=== PATIENT | female | born 1985 | race Caucasian/White ===

== ENCOUNTER 2018-03-26 12:26 | Day surgery (SDC) | payer OTHER, MEDICAID, SELFPAY ==
--- NOTE | 2018-03-26 09:10 | POC_PTH ---
PATIENT: EZEKIEL PILLAI [place] [facility] [id number] AGE/SX: 32/F ROOM: RE03/26/[address]: Dr. Cate Guillen MD : [id number] BED: DIS: 03/26/2018 SPEC #: [id number] RECD: 03/27/18 09:15 STATUS: TREASURE BRAYAN #: [id number] BETH: 03/26/18 09:[address]: Cate Guillen DEPT: SURGICAL PATHOLOGY RECD BY: Arturo Garcia ENTERED: 03/27/18 10:29 SP TYPE: PROD CONC OTHR DR: Monique Dickson, SHELL SIEVE OPERATOR-Adonis Tissues: Product of conception, NOS Procedures: Surgery Specimen Level IV HEADER OPERATION: Dilation and curettage, suction PRE-OP DIAGNOSIS: Incomplete TISSUE SUBMITTED: Products of conception MICROSCOPIC DIAGNOSIS Endometrium, curettage: Rare chorionic villi, decidualized stroma and hypersecretory endometrium consistent with products of conception. AM:[email or web address] 03/28/18 MICROSCOPIC DESCRIPTION Slides are reviewed. GROSS DESCRIPTION Received in fixative is one container labeled with the patient's name and designated products of conception. The specimen consists of multiple irregular fragments of red-calderón soft tissue that in aggregate measure 7.5 x 5.5 x 1 cm. parts are not grossly recognized. Refueling Ramp Supervisor portions are submitted in two cassettes. / AM:shameka 03/27/18 TC:5 CPT: 61231
[2018-03-26 12:58] VITALS: BP 132/74; PULSE 71; RESP 16; TEMP 36.3; O2SAT 99; BMI 39.9
[2018-03-26] MEDS: Doxycycline 100 MG CAPSULE 200 MG PO (13:22)
[2018-03-26 13:36] LABS: Hematocrit 39.7 % (37-47); Hemoglobin 13.5 g/dl (12.0-15.0); Mean Corpuscular Hgb 31.5 pg (27.0-32.0); Mean Corpuscular Volume 92.8 fL (81-99); Mean Platelet Vol. 11.1 fl (6.2-12.0); Platelet Count 266 K/mm3 (150-450); RBC Distribution Width CV 12.5 % (11.6-14.6); RBC Distribution Width SD 41.9 fl (35.1-43.9); Red Blood Count 4.28 M/mm3 (4.2-5.4); Scan Indicated on CBC? Y/N NO; White Blood Count 8.2 K/mm3 (4.4-11.0)
--- NOTE | 2018-03-26 15:10 | DCINST_ITS ---
Discharge Diet: No Restrictions Discharge Activity: May Drive - after 24 hours, May Shower May resume sexual activity in: 4-6 weeks Weight Bearing Status: Weight bearing as tolerated Call your doctor if you observe: Fever of 101 or Higher, Coldness, Increased Pa in, Numbness or Tingling, Change in Color, Inability to urinate, Inability to have a bowel movement, Using more than one pad per hour, Shortness of breath, Dizziness, Fainting spells, Chest pain, Increased palpitations (irregular heartbeat), Uncontrolled pain Allergies/Adverse Reactions: Allergies No Known Allergies Allergy (Verified 10/12/14 01:50) Medications to take at Discharge Vits [Prenatabs FA ] 1 tablet PO DAILY 10/12/14 Primary Care Physician: Monique Dickson NP-C [Primary Care Provider] - Test Results: Test results from this visit will be discussed in further detail at your follow- up appointment, if applicable.
--- NOTE | 2018-03-26 15:56 | PCM.OPRPT ---
Report of Operation Date of Procedure: 03/26/18 Pre-Operative Diagnosis: Incomplete Post-Operative Diagnosis: Same Surgery/Procedure Performed:: Suction dilation & curettage Description of Surgical Findings:: Uterus c/w 9 week . POC's present. Type of Anesthesia:: MAC Specimen's removed: POC's Estimated Blood Loss (mL): 100ml Fluids Replaced: 600ml Description of Procedure: MAC anesthesia placed in OR. Patient placed in dorsal lithotomy position where she was prepped & draped. Tenaculum used to grasp anterior cervix. #9 suction curette introduced and there was good return of POC's. Sharp curettage gently performed with #3 curette. TAUS performed & showed small amount of remaining POC's. Repeat suction curettage performed. 1 additional pass with sharp curette performed & confirmed gritty texture. TAUS confirmed no retained POC's. All instruments removed from vaginal cavity. Vaginal sweep performed. - Complications none
[2018-03-26 16:00] VITALS: BP 121/72; BP 132/74; PULSE 87; RESP 16; TEMP 36.6; O2SAT 100
[2018-03-26 16:05] VITALS: BP 111/67; BP 132/74; PULSE 86; RESP 16; O2SAT 100
[2018-03-26 16:10] VITALS: BP 118/68; BP 132/74; PULSE 79; RESP 16; O2SAT 100
[2018-03-26 16:15] VITALS: BP 125/67; BP 132/74; PULSE 79; RESP 16; TEMP 36.5; O2SAT 100
[2018-03-26 16:53] VITALS: BP 132/74
--- OUTSIDE RECORDS SUMMARY | 2018-06-27 22:27 | XMS RPT_ITS ---
:1985 Author Organization OHIP Care Team Providers Name Role Phone ELIZABETH DICKSON (SKI LIFT ATTENDANT) Attending Unavailable CORNIELELIZABETH LEMOS (SKI LIFT ATTENDANT) Referring Unavailable CORNELIZABETH MARTIN (SKI LIFT ATTENDANT) Attending Unavailable CORNIELLOELIZABETH (SKI LIFT ATTENDANT) Attending Unavailable CORNIELLOELIZABETH (SKI LIFT ATTENDANT) Attending Unavailable CORNIELLOELIZABETH (SKI LIFT ATTENDANT) Attending Unavailable CORNIELLO, ELIZABETH L (SKI LIFT ATTENDANT) Referring Unavailable LIV CHAVEZ (CN) Attending Unavailable CORNIELLO, ELIZABETH Haja (SKI LIFT ATTENDANT) Referring Unavailable PRINCESS LAURENT Attending Unavailable INDIA LOPEZ Attending Unavailable INDIA LOPEZ Attending Unavailable INDIA LOPEZ Referring Unavailable India Lopez Attending Unavailable India Lopez Referring Unavailable Elizabeth Dickson MARINE DRAFTER-C Primary Care Unavailable IMCA Referring Unavailable IMCA Primary Care Unavailable PROBLEMS PROBLEMS DATE TYPE CONDITION / CODE ATTENDING STATUS SOURCE 02/27/2018 Active Vitamin D NA Active [facility] deficiency, [facility] unspecified / Repository E55.9(ICD-10) 02/27/2018 Active Encounter for NA Active [facility] supervision of [facility] other normal Repository , first trimester / Z34.81(ICD-10) 12/25/2017 Admitting Unknown / NA Active [facility] diagnosis UNK(Unknown) Health System Repository 11/12/2017 Active Unknown / [facility], Active [facility] UNK(Unknown) ELIZABETH Smyth (SKI LIFT ATTENDANT) Main [place] Repository 08/01/2017 Active Morbid (severe) NA Active [facility] obesity due to [facility] excess calories / Repository E66.01(ICD-10) PROCEDURES PROCEDURES No Procedure Records FoundRESULTS RESULTS PROGRESS Observed: 04/08/2018 Status: COMPLETED Source: [place] 1:01 PM [facility] REPOSITORY HNO ID: [id number] Author: India Lopez Service: (none) Author Type: Physician Type: Progress Notes Filed: 04/08/2018 3:01 PM Note Text: DATE OF SERVICE: 04/08/2018 PROBLEM: Ezekiel Pillai presents for postop visit. SURGERY AND DATE: Suction Dilation and Curettage 03/26/18 PATHOLOGY: POC's SUBJECTIVE/INTERVAL HISTORY: Ezekiel Pillai reports that she feels well. The miscarriage has caused the emotions from the son she lost to resurface. OBJECTIVE: PE - deferred ASSESSMENT: 32yo female s/p DANDC for missed AB PLAN: Routine care Discussed future Will have nurse call AND check on patient in 1-2 weeks India Lopez MD CNOV Observed: 04/08/2018 Status: COMPLETED Source: [place] 1:00 PM [facility] REPOSITORY Office Visit (WOOB) DAYANARAEZEKIEL SALAZAR ([id number]) 1985 F Date Time Provider Department 04/08/18 1:00 PM INDIA LOPEZ WOCHRIST During your visit today, we recorded the following information about you: Blood pressure Weight 112/74 114.9 kg India Lopez MD 04/08/2018 3:01 PM Signed DATE OF SERVICE: 04/08/2018 PROBLEM: Ezekiel Pillai presents for postop visit. SURGERY AND DATE: Suction Dilation and Curettage 03/26/18 PATHOLOGY: POC's SUBJECTIVE/INTERVAL HISTORY: Ezekiel Pillai reports that she feels well. The miscarriage has caused the emotions from the son she lost to resurface. OBJECTIVE: PE - deferred ASSESSMENT: 32yo female s/p DANDC for missed AB PLAN: Routine care Discussed future Will have nurse call AND check on patient in 1-2 weeks India Lopez MD Referring Provider: INDIA LOPEZ [[id number]] Allergies As of Date: 04/08/2018 (No Known Allergies) Date Reviewed: 04/08/2018 Reviewed by: India Lopez - Fully Assessed Reason for Visit: Post Op [174] Primary Visit Diagnosis:Post-operative state [Z98.890] Prescriptions as of 04/08/2018 Sig: TUMS 500 ORAL Take by mouth. CHOLECALCIFEROL (VITAMIN D3) * Take 1 capsule by mouth once * PEPCID ORAL Take by mouth. IBUPROFEN 600 MG TABLET Take 1 tablet by mouth every * Patient not taking: Reported on 02/21/2018 VITAMIN,CALCIUM,MINE* Take 1 tablet by mouth. Problem List As Of Date 04/08/2018 Noted Resolved Pilonidal cyst without mention of abscess [L05.*INVALID FOR*01/01/2012 Moderate dysplasia of cervix [N87.1] INVALID FOR*11/26/2014 Condyloma acuminatum [A63.0] INVALID FOR*01/01/2012 Supervision of normal first [Z34.00] INVALID FOR*01/01/2012 Candidiasis of vulva and vagina [B37.3] INVALID FOR*01/01/2012 with uncertain dates [Z34.90] INVALID FOR*02/16/2012 More... Obesity in [O99.210] INVALID FOR*01/02/2017 More... Tobacco use in [O99.330] INVALID FOR*01/06/2013 More... Supervision of other normal [Z34.80] INVALID FOR*01/06/2013 Uterine size date discrepancy [O26.849] INVALID FOR*01/06/2013 GBS (group B streptococcus) UTI complicating pr*INVALID FOR*11/26/2014 More... Encounter for supervision of normal first pregn*INVALID FOR*05/10/2016 Encounter for supervision of normal i*INVALID FOR*01/02/2017 Current with history of pre-term labo*INVALID FOR*01/02/2017 More... polycystic kidney disease affecting antep*INVALID FOR*01/02/2017 More... Positive GBS test [B95.1] INVALID FOR* [Z34.90] INVALID FOR*01/02/2017 with history of [O09.2*INVALID FOR* More... Obesity complicating , first trimester*INVALID FOR* More... Medications Discontinued During This Encounter miSOPROStol (CYTOTEC) 200 mcg tablet 4 ta* 0 03/25/2018 04/08/2018 Class: Print RX Route: VAGINAL Sig: Use 4 tablets vaginally as directed. place 4 tabs vaginally Patient not taking: Reported on 04/08/2018 Disc: Discontinued by Patient Follow-up and Disposition History Recorded Encounter Status:Closed by INDIA LOPEZ MD on 04/08/18 OPERATIVE REPORT Observed: 03/26/2018 Status: F Source: [place] 4:03 PM [facility] Medical [facility] Department [address] [place] [address] Operative Report 03/26/18 1556 MR#: [id number] Acct: [id number] Name: EZEKIEL PILLAI Rep #: [id number] : 1985 32 From: India Lopez PCP: Elizabeth Dickson NP Status: [facility] Y Location: [place] [address] Report of Operation Date of Procedure: 03/26/18 Pre-Operative Diagnosis: Incomplete Post-Operative Diagnosis: Same Surgery/Procedure Performed:: Suction dilation AND curettage Description of Surgical Findings:: Uterus c/w 9 week . POC's present. Type of Anesthesia:: MAC Specimen's removed: POC's Estimated Blood Loss (mL): 100ml Fluids Replaced: 600ml Description of Procedure: MAC anesthesia placed in OR. Patient placed in dorsal lithotomy position where she was prepped AND draped. Tenaculum used to grasp anterior cervix. #9 suction curette introduced and there was good return of POC's. Sharp curettage gently performed with #3 curette. TAUS performed AND showed small amount of remaining POC's. Repeat suction curettage performed. 1 additional pass with sharp curette performed AND confirmed gritty texture. TAUS confirmed no retained POC's. All instruments removed from vaginal cavity. Vaginal sweep performed. - Complications none 03/26/18 1603 <Electronically signed by India Lopez > Date India Lopez CC: STEVENSON Dickson; India Lopez Signed DISCHARGE INSTRUCTION Observed: 03/26/2018 Status: F Source: [place] 3:10 PM [facility] RE[facility]ORY [facility] Medical Records Department [address] [place] [address] Instructions for Home/Discharge Instructions 03/26/18 1509 MR#: [id number] Acct: [id number] Name: EZEKIEL PILLAI Rep #: [id number] : 1985 32 From: India Lopez PCP: Elizabeth Dickson NP Status: REG SDC Discharge Diet: No Restrictions Discharge Activity: May Drive - after 24 hours, May Shower May resume sexual activity in: 4-6 weeks Weight Bearing Status: Weight bearing as tolerated Call your doctor if you observe: Fever of 101 or Higher, Coldness, Increased Pain, Numbness or Tingling, Change in Color, Inability to urinate, Inability to have a bowel movement, Using more than one pad per hour, Shortness of breath, Dizziness, Fainting spells, Chest pain, Increased palpitations (irregular heartbeat), Uncontrolled pain Allergies/Adverse Reactions: Allergies No Known Allergies Allergy (Verified 10/12/14 01:50) Medications to take at Discharge Vits [Prenatabs FA ] 1 tablet PO DAILY 10/12/14 Primary Care Physician: Elizabeth Dickson NP-Adonis [Primary Care Provider] - Test Results: Test results from this visit will be discussed in further detail at your follow-up appointment, if applicable. 03/26/18 1510 <Electronically signed by India Lopez > Date India Lopez CC: STEVENSON Dickson CBC-COMPLETE BLOOD CNT Collected: 03/26/2018 Status: F Source: [place] NO DIFF 1:10 PM [facility] REPOSITORY TYPE CODE TESTS RESULT OUT OF RANGE REFERENCE UNITS LAB L100.1000 4.4-11.0 K/mm3 Normal WBC 8.2 LAB L100.1200 4.2-5.4 M/mm3 Normal RBC 4.28 LAB L100.1300 12.0-15.0 g/dl Normal HGB 13.5 LAB L100.1400 37-47 % Normal HCT 39.7 LAB L100.1500 81-99 fL Normal MCV 92.8 LAB L100.1600 27.0-32.0 pg Normal MCH 31.5 LAB L100.1700 32-36 g/gl Normal MCHC 34.0 LAB L100.1810 11.6-14.6 % Normal RDW CV 12.5 LAB L100.1820 35.1-43.9 fl Normal RDW SD 41.9 LAB L100.1900 150-450 K/mm3 Normal PLT 266 LAB L100.2000 6.2-12.0 fl Normal MPV 11.1 Performed By: #### L100.0500 #### [facility] [address] [facility]. [place], [place], [id number] TYPE AND SCREEN Collected: 03/26/2018 Status: F Source: [place] 1:10 PM [facility] REPOSITORY Order Comment: Reason for Type AND Screen/Red Cells: SURGERY Surgery Date: 03/26/18 TYPE CODE TESTS RESULT OUT OF RANGE REFERENCE UNITS LAB B10.0800 A Normal BLOOD TYPE GEL POSITIVE LAB B100.4000 Normal Antibody NEGATIVE Screen Performed By: #### B101.7450 #### [facility] [address] [facility]. [place], [place], [address] PROGRESS Observed: 03/26/2018 Status: COMPLETED Source: [place] 12:[address] [facility] [place] REPOSITORY HNO ID: [id number] Author: India Lopez Service: (none) Author Type: Physician Type: Progress Notes Filed: 03/26/2018 1:00 PM Note Text: Ezekiel Pillai is a 32 year old female who presents for missed AB. HPI: Patient presents with vaginal bleeding. She had very heavy bleeding and passed the baby. Patient almost passed out. Currently the bleeding is less and she feels a little better. PAST MEDICAL HISTORY Diagnosis Date - Abnormal glandular Papanicolaou smear of cervix 2-2004 Abn. Pap smear (cervix) - Abnormal Pap smear of cervix 01/18 ascus neg hpv - Anemia - polycystic kidney disease affecting antepartum care of mother - Pilonidal cyst without mention of abscess PAST SURGICAL HISTORY Procedure Laterality Date - COLPOSCOPY (VAGINOSCOPY) 11/25/2007 Colposcopy - COLPOSCOPY (VAGINOSCOPY) 06/08/2008 Colposcopy - REMOVAL OF TONSILS,<12 Y/O 2002 Tonsillectomy - REMV PILONIDAL LESION EXTENS - REMV PILONIDAL LESION EXTENS 03/11/2008 FAMILY HISTORY Problem Relation Age of Onset - Alcohol/Drug Father - Alcohol/Drug Maternal Grandmother - Thyroid Maternal Grandmother - Cancer Maternal Grandmother Lung cancer - Heart Maternal Grandfather - Alcohol/Drug Paternal Grandfather - other (sight deficiency- not legally blind +9.25) Daughter - Kidney Disease Son dysplastic kidney Social History Marital status: Spouse name: CARLITOS Years of education: 13 Number of children: 4 Occupational History 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 cholecalciferol, Vitamin D3, (VITAMIN D3) 50,000 unit cap capsule Take 1 capsule by mouth once each week. oxyCODONE-acetaminophen (PERCOCET) 5-325 mg tablet Take 1 tablet by mouth every 6 hours as needed for up to 7 days. Dvgtfjyk-Fp-Nsd-Fe-FA ( VITAMIN) tab Take 1 tablet by mouth. FAMOTIDINE (PEPCID ORAL) Take by mouth. ibuprofen (MOTRIN) 600 mg tablet Take 1 tablet by mouth every 6 hours. (Patient not taking: Reported on 02/21/2018 ) miSOPROStol (CYTOTEC) 200 mcg tablet Use 4 tablets vaginally as directed. place 4 tabs vaginally No current facility-administered medications for this visit. Allergies As of Date: 03/26/2018 (No Known Allergies) Fully Assessed 03/26/2018 Expanded ROS: N/A Allergies and current medication updated:Yes EXAM: BP 102/70 Wt 248 lb (112.5kg) LMP 12/27/2017 GENERAL: pleasant, female in no apparent distress CHEST: Clear to auscultation Normal inspiratory effort Regular rate and rhythm ABDOMEN: soft, non-tender and no masses PELVIC: external genitalia normal, no vulvar lesions, no cervical lesions, old blood present but no active bleeding, normal appearing perineal body and perianal region NEURO: alert and oriented x3,exam grossly non-focal EXTREMITIES: normal ASSESSMENT AND PLAN: 32yo female with incomplete AB TVUS shows no pole but retained POC's measuring 4.5cm. Discussed R/B/A of management options AND will proceed with suction DANDC. Informed consent signed AND all questions answered. Pre-op doxycycline ordered. RH positive. India Lopez MD CNOV Observed: 03/26/2018 Status: COMPLETED Source: [place] 11:20 AM [facility] REPOSITORY Office Visit (WOOB) EZEKIEL PILLAI ([id number]) 1985 F Date Time Provider Department 03/26/18 11:20 AM INDIA LOPEZ During your visit today, we recorded the following information about you: Blood pressure Weight 102/70 112.5 kg India Lopez MD 03/26/2018 1:00 PM Signed Ezekiel Mckeon Son is a 32 year old female who presents for missed AB. HPI: Patient presents with vaginal bleeding. She had very heavy bleeding and passed the baby. Patient almost passed out. Currently the bleeding is less and she feels a little better. PAST MEDICAL HISTORY Diagnosis Date - Abnormal glandular Papanicolaou smear of cervix 2-2004 Abn. Pap smear (cervix) - Abnormal Pap smear of cervix 01/18 ascus neg hpv - Anemia - polycystic kidney disease affecting antepartum care of mother - Pilonidal cyst without mention of abscess PAST SURGICAL HISTORY Procedure Laterality Date - COLPOSCOPY (VAGINOSCOPY) 11/25/2007 Colposcopy - COLPOSCOPY (VAGINOSCOPY) 06/08/2008 Colposcopy - REMOVAL OF TONSILS,<12 Y/O 2002 Tonsillectomy - REMV PILONIDAL LESION EXTENS - REMV PILONIDAL LESION EXTENS 03/11/2008 FAMILY HISTORY Problem Relation Age of Onset - Alcohol/Drug Father - Alcohol/Drug Maternal Grandmother - Thyroid Maternal Grandmother - Cancer Maternal Grandmother Lung cancer - Heart Maternal Grandfather - Alcohol/Drug Paternal Grandfather - other (sight deficiency- not legally blind +9.25) Daughter - Kidney Disease Son dysplastic kidney Social History Marital status: Spouse name: CARLITOS Years of education: 13 Number of children: 4 Occupational History 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 cholecalciferol, Vitamin D3, (VITAMIN D3) 50,000 unit cap capsule Take 1 capsule by mouth once each week. oxyCODONE-acetaminophen (PERCOCET) 5-325 mg tablet Take 1 tablet by mouth every 6 hours as needed for up to 7 days. Difcsccm-Sg-Cmq-Fe-FA ( VITAMIN) tab Take 1 tablet by mouth. FAMOTIDINE (PEPCID ORAL) Take by mouth. ibuprofen (MOTRIN) 600 mg tablet Take 1 tablet by mouth every 6 hours. (Patient not taking: Reported on 02/21/2018 ) miSOPROStol (CYTOTEC) 200 mcg tablet Use 4 tablets vaginally as directed. place 4 tabs vaginally No current facility-administered medications for this visit. Allergies As of Date: 03/26/2018 (No Known Allergies) Fully Assessed 03/26/2018 Expanded ROS: N/A Allergies and current medication updated:Yes EXAM: BP 102/70 Wt 248 lb (112.5kg) LMP 12/27/2017 GENERAL: pleasant, female in no apparent distress CHEST: Clear to auscultation Normal inspiratory effort Regular rate and rhythm ABDOMEN: soft, non-tender and no masses PELVIC: external genitalia normal, no vulvar lesions, no cervical lesions, old blood present but no active bleeding, normal appearing perineal body and perianal region NEURO: alert and oriented x3,exam grossly non-focal EXTREMITIES: normal ASSESSMENT AND PLAN: 32yo female with incomplete AB TVUS shows no pole but retained POC's measuring 4.5cm. Discussed R/B/A of management options AND will proceed with suction DANDC. Informed consent signed AND all questions answered. Pre-op doxycycline ordered. RH positive. India Lopez MD Referring Provider: SELF [200] Allergies As of Date: 03/26/2018 (No Known Allergies) Date Reviewed: 03/26/2018 Reviewed by: India Lopez - Fully Assessed Reason for Visit: Follow Up [171] Cmt: MISSED AB Primary Visit Diagnosis:Incomplete [O03.4] Prescriptions as of 03/26/2018 Sig: TUMS 500 ORAL Take by mouth. CHOLECALCIFEROL (VITAMIN D3) * Take 1 capsule by mouth once * OXYCODONE-ACETAMINOPHEN 5 MG-* Take 1 tablet by mouth every * VITAMIN,CALCIUM,MINE* Take 1 tablet by mouth. PEPCID ORAL Take by mouth. IBUPROFEN 600 MG TABLET Take 1 tablet by mouth every * Patient not taking: Reported on 02/21/2018 MISOPROSTOL 200 MCG TABLET Use 4 tablets vaginally as di* Problem List As Of Date 03/26/2018 Noted Resolved Pilonidal cyst without mention of abscess [L05.*INVALID FOR*01/01/2012 Moderate dysplasia of cervix [N87.1] INVALID FOR*11/26/2014 Condyloma acuminatum [A63.0] INVALID FOR*01/01/2012 Supervision of normal first [Z34.00] INVALID FOR*01/01/2012 Candidiasis of vulva and vagina [B37.3] INVALID FOR*01/01/2012 with uncertain dates [Z34.90] INVALID FOR*02/16/2012 More... Obesity in [O99.210] INVALID FOR*01/02/2017 More... Tobacco use in [O99.330] INVALID FOR*01/06/2013 More... Supervision of other normal [Z34.80] INVALID FOR*01/06/2013 Uterine size date discrepancy [O26.849] INVALID FOR*01/06/2013 GBS (group B streptococcus) UTI complicating pr*INVALID FOR*11/26/2014 More... Encounter for supervision of normal first pregn*INVALID FOR*05/10/2016 Encounter for supervision of normal i*INVALID FOR*01/02/2017 Current with history of pre-term labo*INVALID FOR*01/02/2017 More... polycystic kidney disease affecting antep*INVALID FOR*01/02/2017 More... Positive GBS test [B95.1] INVALID FOR* [Z34.90] INVALID FOR*01/02/2017 with history of [O09.2*INVALID FOR* More... Obesity complicating , first trimester*INVALID FOR* More... Encounter Status:Closed by INDIA LOPEZ MD on 03/26/18 PRODUCTS OF CONCEPTION Observed: 03/26/2018 Status: F Source: [place] 9:10 AM [facility] REPOSITORY Patient: EZEKIEL PILLAI : 1985 (32/F) Acct Num: [id number] Phys: India Lopez Unit Num: [id number] Loc: [facility] Specimen: [id number] Received: 03/27/18914 Spec Type: PROD CONC TISSUES 1 TISSUES: Product of conception, NOS GROSS DESCRIPTION Received in fixative is one container labeled with the patient's name and designated products of conception. The specimen consists of multiple irregular fragments of red-calderón soft tissue that in aggregate measure 7.5 x 5.5 x 1 cm. parts are not grossly recognized. Accounts Payable Professional portions are submitted in two cassettes. / AM:shameka 03/27/18 TC:5 CPT: 25981 HEADER OPERATION: Dilation and curettage, suction PRE-OP DIAGNOSIS: Incomplete TISSUE SUBMITTED: Products of conception MICROSCOPIC DESCRIPTION Slides are reviewed. MICROSCOPIC DIAGNOSIS Endometrium, curettage: Rare chorionic villi, decidualized stroma and hypersecretory endometrium consistent with products of conception. AM:shameka 03/28/18 Signed Nathan Diehl, 03/28/18 <signature on file> Performed By: #### PPOC #### [facility] [place], [id number] PROGRESS Observed: 03/25/2018 Status: COMPLETED Source: [place] 9:[address] [facility] [place] REPOSITORY HNO ID: [id number] Author: Princess Laurent Service: (none) Author Type: Physician Type: Progress Notes Filed: 03/25/2018 10:20 AM Note Text: Ezekiel Pillai is a 32 year old female who presents for problem visit for spotting in . HPI: Should be 12 weeks 4 days based on dating. Had 3 days of spotting. Wearing a pantiliner and does not have blood on it. Spotting is only with wiping. It is bright red in color. +Back ache and very mild cramping. Otherwise feels well and has no other symptoms. PAST MEDICAL HISTORY Diagnosis Date - Abnormal glandular Papanicolaou smear of cervix 2-2004 Abn. Pap smear (cervix) - Abnormal Pap smear of cervix 01/18 ascus neg hpv - Anemia - polycystic kidney disease affecting antepartum care of mother - Pilonidal cyst without mention of abscess REVIEW OF SYSTEMS Abdomen: No abdominal pain, nausea, vomiting, diarrhea, or constipation. Bladder: No dysuria, gross hematuria. Peanut Blancher: +Spotting. Expanded ROS: N/A Allergies and current medication updated:Yes EXAM: BP 128/82 Wt 253 lb 3.2 oz (114.9kg) LMP 12/27/2017 GENERAL: pleasant, female in no apparent distress HEENT: Normocephalic and atraumatic NECK: full range of motion DERMATOLOGY: Normal and without lesions CHEST: Normal inspiratory effort ABDOMEN: soft, non-tender and no masses NEURO: exam grossly non-focal EXTREMITIES: normal ASSESSMENT AND PLAN: Encounter Diagnosis ICD-10-CM 1. Missed O02.1 miSOPROStol (CYTOTEC) 200 mcg tablet oxyCODONE-acetaminophen (PERCOCET) 5-325 mg tablet 2. Spotting in O26.859 3. 12 weeks gestation of Z3A.12 URINE OB DIP B/O ? TVUS performed: CRL measuring 9w2d, no heart beat with doppler or M-mode ? Discussed MAB with patient in detail and all questions answered ? Hgb 12.6, Rh positive ? Reviewed options: expectant, medical, and surgical management ? Patient desires medical management. Rx given for Cytotec and Percocet. Expectations reviewed. She is not sure when she is going to take the Cytotec given her work schedule. Instructed her to call when she places the Cytotec so we can determine follow up ? Reviewed repeat US within 7 days after taking Cytotec and weekly HCG quants ? Discussed to wait to get again until HCG quant followed to 0 Princess Laurent DO CNOV Observed: 03/25/2018 Status: COMPLETED Source: [place] 9:15 AM [facility] REPOSITORY Office Visit (WOOB) EZEKIEL PILLAI ([id number]) 1985 F Date Time Provider Department 03/25/18 9:15 AM PRINCESS LAURENT During your visit today, we recorded the following information about you: Blood pressure Weight 128/82 114.9 kg Elizabeth Red MA 03/25/2018 9:06 AM Signed SEQUENTIAL SCREENINGS The [facility] offers sequential screenings for women who are interested in screenings for chromosomal abnormalities and certain defects during a . The sequential screen combines ultrasound and blood tests to determine the risk of chromosomal abnormalities, including Down's Syndrome (Trisomy 21) and Trisomy 18, as well as open neural tube defects including spina bifida. Ultrasound examination is performed between 11 weeks and 13 weeks gestational age. Blood tests are drawn after the ultrasound and again later in the between 15 and 21 weeks gestational age. Please let your physician know if you are interested in this testing. It will require an appointment with our field technician. This is not an ultrasound performed by a physician in our office during a routine visit. SIGNS AND SYMPTOMS OF LABOR 1. Contractions every 10 minutes or more often 2. Clear, pink, or brownish fluid (water) leaking from vagina 3. Feeling that baby is pushing down, pressure 4. Low, dull backache 5. Cramps that feel like a period 6. Cramps with or without diarrhea If you notice any of the above symptoms, contact our office at [phone] and ask to speak with a nurse. After hours, you can call doctors registry at [phone] OR call [facility] at [phone] and ask to have the doctor peoplesoft hcm consultant paged. If you consider this an emergency, dial 1--0 or go to your nearest emergency department. NEED HELP? Are you dealing with a violent or abusive relationship? Are you a victim of rape or sexual assult? Call [facility] ([place]) 24 hour Crisis Hotline: 614.645.4927 or 541-317-1852. MANUAL Your Guide to a Healthy manual is now on-line. Visit [email or web address] to download your free copy Princess Laurent MD 03/25/2018 10:20 AM Signed Ezekiel Pillai is a 32 year old female who presents for problem visit for spotting in . HPI: Should be 12 weeks 4 days based on dating. Had 3 days of spotting. Wearing a pantiliner and does not have blood on it. Spotting is only with wiping. It is bright red in color. +Back ache and very mild cramping. Otherwise feels well and has no other symptoms. PAST MEDICAL HISTORY Diagnosis Date - Abnormal glandular Papanicolaou smear of cervix 2-2004 Abn. Pap smear (cervix) - Abnormal Pap smear of cervix 01/18 ascus neg hpv - Anemia - polycystic kidney disease affecting antepartum care of mother - Pilonidal cyst without mention of abscess REVIEW OF SYSTEMS Abdomen: No abdominal pain, nausea, vomiting, diarrhea, or constipation. Bladder: No dysuria, gross hematuria. Peanut Blancher: +Spotting. Expanded ROS: N/A Allergies and current medication updated:Yes EXAM: BP 128/82 Wt 253 lb 3.2 oz (114.9kg) LMP 12/27/2017 GENERAL: pleasant, female in no apparent distress HEENT: Normocephalic and atraumatic NECK: full range of motion DERMATOLOGY: Normal and without lesions CHEST: Normal inspiratory effort ABDOMEN: soft, non-tender and no masses NEURO: exam grossly non-focal EXTREMITIES: normal ASSESSMENT AND PLAN: Encounter Diagnosis ICD-10-CM 1. Missed O02.1 miSOPROStol (CYTOTEC) 200 mcg tablet oxyCODONE-acetaminophen (PERCOCET) 5-325 mg tablet 2. Spotting in O26.859 3. 12 weeks gestation of Z3A.12 URINE OB DIP B/O ? TVUS performed: CRL measuring 9w2d, no heart beat with doppler or M-mode ? Discussed MAB with patient in detail and all questions answered ? Hgb 12.6, Rh positive ? Reviewed options: expectant, medical, and surgical management ? Patient desires medical management. Rx given for Cytotec and Percocet. Expectations reviewed. She is not sure when she is going to take the Cytotec given her work schedule. Instructed her to call when she places the Cytotec so we can determine follow up ? Reviewed repeat US within 7 days after taking Cytotec and weekly HCG quants ? Discussed to wait to get again until HCG quant followed to 0 Princess Laurent, Referring Provider: SELF [200] Allergies As of Date: 03/25/2018 (No Known Allergies) Date Reviewed: 03/25/2018 Reviewed by: Elizabeth Red - Fully Assessed Reason for Visit: Care [86] Primary Visit Diagnosis:Missed [O02.1] Other Visit Diagnoses:Spotting in [O26.859] 12 weeks gestation of [Z3A.12] Order(s):URINE OB DIP B/O [[id number]] Order #: [id number] miSOPROStol (CYTOTEC) 200 mcg tabletUse 4 tablets vaginally as directed. place 4 tabs vaginallyDisp: 4 tabletRfl: 0 oxyCODONE-acetaminophen (PERCOCET) 5-325 mg tabletTake 1 tablet by mouth every 6 hours as needed for up to 7 days.Disp: 5 tabletRfl: 0 Prescriptions as of 03/25/2018 Sig: TUMS 500 ORAL Take by mouth. CHOLECALCIFEROL (VITAMIN D3) * Take 1 capsule by mouth once * VITAMIN,CALCIUM,MINE* Take 1 tablet by mouth. PEPCID ORAL Take by mouth. IBUPROFEN 600 MG TABLET Take 1 tablet by mouth every * Patient not taking: Reported on 02/21/2018 MISOPROSTOL 200 MCG TABLET Use 4 tablets vaginally as di* OXYCODONE-ACETAMINOPHEN 5 MG-* Take 1 tablet by mouth every * Problem List As Of Date 03/25/2018 Noted Resolved Pilonidal cyst without mention of abscess [L05.*INVALID FOR*01/01/2012 Moderate dysplasia of cervix [N87.1] INVALID FOR*11/26/2014 Condyloma acuminatum [A63.0] INVALID FOR*01/01/2012 Supervision of normal first [Z34.00] INVALID FOR*01/01/2012 Candidiasis of vulva and vagina [B37.3] INVALID FOR*01/01/2012 with uncertain dates [Z34.90] INVALID FOR*02/16/2012 More... Obesity in [O99.210] INVALID FOR*01/02/2017 More... Tobacco use in [O99.330] INVALID FOR*01/06/2013 More... Supervision of other normal [Z34.80] INVALID FOR*01/06/2013 Uterine size date discrepancy [O26.849] INVALID FOR*01/06/2013 GBS (group B streptococcus) UTI complicating pr*INVALID FOR*11/26/2014 More... Encounter for supervision of normal first pregn*INVALID FOR*05/10/2016 Encounter for supervision of normal i*INVALID FOR*01/02/2017 Current with history of pre-term labo*INVALID FOR*01/02/2017 More... polycystic kidney disease affecting antep*INVALID FOR*01/02/2017 More... Positive GBS test [B95.1] INVALID FOR* [Z34.90] INVALID FOR*01/02/2017 with history of [O09.2*INVALID FOR* More... Obesity complicating , first trimester*INVALID FOR* More... Other instructions from your clinician: SEQUENTIAL SCREENINGS The [facility] offers sequential screenings for women who are interested in screenings for chromosomal abnormalities and certain defects during a . The sequential screen combines ultrasound and blood tests to determine the risk of chromosomal abnormalities, including Down's Syndrome (Trisomy 21) and Trisomy 18, as well as open neural tube defects including spina bifida. Ultrasound examination is performed between 11 weeks and 13 weeks gestational age. Blood tests are drawn after the ultrasound and again later in the between 15 and 21 weeks gestational age. Please let your physician know if you are interested in this testing. It will require an appointment with our field technician. This is not an ultrasound performed by a physician in our office during a routine visit. SIGNS AND SYMPTOMS OF LABOR 1. Contractions every 10 minutes or more often 2. Clear, pink, or brownish fluid (water) leaking from vagina 3. Feeling that baby is pushing down, pressure 4. Low, dull backache 5. Cramps that feel like a period 6. Cramps with or without diarrhea If you notice any of the above symptoms, contact our office at [phone] and ask to speak with a nurse. After hours, you can call doctors registry at [phone] OR call [facility] at [phone] and ask to have the doctor peoplesoft hcm consultant paged. If you consider this an emergency, dial 5-7-5 or go to your nearest emergency department. NEED HELP? Are you dealing with a violent or abusive relationship? Are you a victim of rape or sexual assult? Call [facility] ([place]) 24 hour Crisis Hotline: 851.122.7377 or 946-466-2188. MANUAL Your Guide to a Healthy manual is now on-line. Visit [email or web address] to download your free copy Prescriptions ordered this encounter Disp Refills Start End MISOPROSTOL 200 MCG TABLET 4 ta* 0 03/25/2018 Class: Print RX Route: VAGINAL Sig: Use 4 tablets vaginally as directed. place 4 tabs vaginally OXYCODONE-ACETAMINOPHEN 5 MG-325 MG * 5 ta* 0 03/25/2018 04/01/2018 Class: Print RX Route: ORAL Sig: Take 1 tablet by mouth every 6 hours as needed for up to 7 days. Level of Service: [facility] PATIENT VISIT LEVEL 3 [73051] Disposition: Return for Call when taking Cytotec for follow up appointment. Follow-up and Disposition History Recorded Encounter Status:Closed by PRINCESS LAURENT MD on 03/25/18 PROGRESS Observed: 03/11/2018 Status: COMPLETED Source: [place] 10:15 AM [facility] REPOSITORY HNO ID: [id number] Author: Susie Duran Service: (none) Author Type: (none) Type: Progress Notes Filed: 03/11/2018 10:15 AM Note Text: Pap logged and normal pap letter sent to patient. Susie KAUFMAN Observed: 03/04/2018 Status: COMPLETED Source: [place] 12:00 AM [facility] REPOSITORY Telephone (WOOB) EZKEIEL PILLAI ([id number]) 1985 F Date Time Provider Department 03/04/18 LIV CHAVEZ) WOOB During your visit today, we recorded the following information about you: Cely Koch RN 03/04/2018 10:56 AM Signed Patient 9w4d calling requesting order for Nuchal U/S and genetic testing due to previous with abnormality. Patient scheduled with Dr. Robins on 03/27/18 for ultrasound. Patient seen for New OB appointment on 02/27/18. Please file pended ultrasound order, thank you. Cely Chavez APRN.CNM 03/04/2018 10:58 AM Signed Order for NT filed. Liv Chavez APRN.CNM Allergies As of Date: 03/04/2018 (No Known Allergies) Date Reviewed: 02/27/2018 Reviewed by: Liv Chavez - Fully Assessed Reason for Visit: Orders [681] Primary Visit Diagnosis: with history of [O09.299] Order(s):NUCHAL TRANSLUCENCY WHI [[id number]] Order #: [id number]: 1 Prescriptions as of 03/04/2018 Sig: VITAMIN,CALCIUM,MINE* Take 1 tablet by mouth. CHOLECALCIFEROL (VITAMIN D3) * Take 1 capsule by mouth once * IBUPROFEN 600 MG TABLET Take 1 tablet by mouth every * Patient not taking: Reported on 02/21/2018 PEPCID ORAL Take by mouth. Problem List As Of Date 03/04/2018 Noted Resolved Pilonidal cyst without mention of abscess [L05.*INVALID FOR*01/01/2012 Moderate dysplasia of cervix [N87.1] INVALID FOR*11/26/2014 Condyloma acuminatum [A63.0] INVALID FOR*01/01/2012 Supervision of normal first [Z34.00] INVALID FOR*01/01/2012 Candidiasis of vulva and vagina [B37.3] INVALID FOR*01/01/2012 with uncertain dates [Z34.90] INVALID FOR*02/16/2012 More... Obesity in [O99.210] INVALID FOR*01/02/2017 More... Tobacco use in [O99.330] INVALID FOR*01/06/2013 More... Supervision of other normal [Z34.80] INVALID FOR*01/06/2013 Uterine size date discrepancy [O26.849] INVALID FOR*01/06/2013 GBS (group B streptococcus) UTI complicating pr*INVALID FOR*11/26/2014 More... Encounter for supervision of normal first pregn*INVALID FOR*05/10/2016 Encounter for supervision of normal i*INVALID FOR*01/02/2017 Current with history of pre-term labo*INVALID FOR*01/02/2017 More... polycystic kidney disease affecting antep*INVALID FOR*01/02/2017 More... Positive GBS test [B95.1] INVALID FOR* [Z34.90] INVALID FOR*01/02/2017 with history of [O09.2*INVALID FOR* More... Obesity complicating , first trimester*INVALID FOR* More... Encounter Status:Closed by LIV CHAVEZ CNM on 03/04/18 PROGRESS Observed: 03/02/2018 Status: COMPLETED Source: [place] 1:37 PM [facility] REPOSITORY O ID: [id number] Author: Liv Chavez Service: (none) Author Type: Pick Up Man Type: Progress Notes Filed: 03/02/2018 1:37 PM Note Text: ClarityAdhart message to patient re: < 10,000 GBS positive result in urine. Liv Chavez APRN.COLTEN 50G, 1HR GEST. Collected: 02/27/2018 Status: F Source: [facility] 3:[address] [facility] [place] REPOSITORY TYPE CODE TESTS RESULT OUT OF REFERENCE UNITS RANGE LAB GLUP 74-134 mg/dL Glucose 79 Screen, Preg Result Comment: [place] Congress of Obstetricians and Gynecologists (Garcia/Julio César) guidelines state a gestational diabetes mellitus positive screen is made, in women not previously diagnosed with overt diabetes, when the 1 hr plasma glucose level is equal to or above 140 mg/dL. The [facility] [place] recommends a 135 mg/dL cutoff. Performed By: #### GLTGST #### [facility] [address] [address] CBC Collected: 02/27/2018 Status: F Source: [place] 3:16 PM [facility] REPOSITORY TYPE CODE TESTS RESULT OUT OF REFERENCE UNITS RANGE LAB WBC 3.70-11.00 k/uL WBC 6.69 LAB RBC 3.90-5.20 m/uL RBC 4.05 LAB HGB 11.5-15.5 g/dL Hemoglobin 12.6 LAB HCT 36.0-46.0 % Hematocrit 38.6 LAB MCV 80.0-100.0 fL MCV 95.3 LAB MCH 26.0-34.0 pG MCH 31.1 LAB MCHC 30.5-36.0 g/dL MCHC 32.6 LAB RDWCV 11.5-15.0 % RDW-CV 12.6 LAB PLTCT 150-400 k/uL Platelet Count 267 LAB MPV 9.0-12.7 fL MPV 11.5 LAB ABSNUC <0.01 k/uL Absolute nRBC <0.01 Performed By: #### CBC, HBSAG, HIV12C, SYPHGX, VITD, RUBIGG #### [address] [id number] [place] [address] HEPATITIS B SURF. AG Collected: 02/27/2018 Status: F Source: [place] 3:16 PM [facility] REPOSITORY TYPE CODE TESTS RESULT OUT OF REFERENCE UNITS RANGE LAB HBSAG Negative Hepatitis B Negative Surf. Ag Performed By: #### CBC, HBSAG, HIV12C, SYPHGX, VITD, RUBIGG #### [id number] [place] [id number] HIV 12 COMBO (AG/AB) Collected: 02/27/2018 Status: F Source: [place] 3:16 PM [facility] REPOSITORY TYPE CODE TESTS RESULT OUT OF REFERENCE UNITS RANGE LAB HVAGAB Non Reactive HIV Non Reactive 12 Ag/Ab Result Comment: (NOTE) HIV Information: [place] Rev. Code 3701.243(E): This information has been disclosed to you from confidential records protected from disclosure by state law. You shall make no further disclosure of this information without the specific, written, and informed release of the individual to whom it pertains, or as otherwise permitted by state law. A general authorization for the release of medical or other information is not sufficient for the purpose of the release of HIV test results or diagnoses. Performed By: #### CBC, HBSAG, HIV12C, SYPHGX, VITD, RUBIGG #### [facility] [employer] [address] [address] SYPHILIS IGG WITH Collected: 02/27/2018 Status: F Source: [facility] 3:16 PM [facility] REPOSITORY TYPE CODE TESTS RESULT OUT OF REFERENCE UNITS RANGE LAB SYPHQL Nonreactive Syphilis IgG, Nonreactive Qual Result Comment: No serological evidence of infection with T. pallidum. LAB SYPHLG AI Syphilis IgG <0.2 Result Comment: Antibody index is interpreted as follows: Non reactive SPECIMENS <=0.8 Weak reactive SPECIMENS 0.9 to 5.9 Reactive SPECIMENS >=6.0 Performed By: #### CBC, HBSAG, HIV12C, SYPHGX, VITD, RUBIGG #### [facility] [employer] [address] [address] VITAMIN D 25 HYDROXY Collected: 02/27/2018 Status: F Source: [place] 3:16 PM [facility] REPOSITORY TYPE CODE TESTS RESULT OUT OF REFERENCE UNITS RANGE LAB VITD 31.0-80.0 ng/mL Low Vitamin D 25 21.2 Hydroxy Result Comment: Classification of 25 [place] Vitamin D status: Insufficiency/Moderate Deficiency: < or = 30 ng/mL Sufficiency/Optimal Levels: 31 to 80 ng/mL Toxicity: > 100 ng/mL Test performed by chemiluminescent immunoassay. Performed By: #### CBC, HBSAG, HIV12C, SYPHGX, VITD, RUBIGG #### [facility] [employer] [address] [address] RUBELLA IGG ANTIBODY Collected: 02/27/2018 Status: F Source: [place] 3:16 PM [facility] REPOSITORY TYPE CODE TESTS RESULT OUT OF RANGE REFERENCE UNITS LAB RUBGQL Negative Abnormal Rubella IgG Positive Alert Ab, Qual Result Comment: Sample is considered positive for IgG antibodies to rubella virus. A positive result indicates previous exposure to Rubella virus or vaccination. LAB RUBQNT Index Value Rubella IgG Ab 3.24 Result Comment: Index values are interpreted as follows: Negative specimens <0.90 Equivocol specimens 0.90 to 0.99 Positive specimens >0.99 The magnitude of the measured result is not indicative of the amount of antibody present. Performed By: #### CBC, HBSAG, HIV12C, SYPHGX, VITD, RUBIGG #### [id number] [place] [address] TYPE AND SCR,PRENATL Collected: 02/27/2018 Status: F Source: [place] 3:16 PM [facility] REPOSITORY TYPE CODE TESTS RESULT OUT OF REFERENCE UNITS RANGE LAB %ABR A ABO/RH(D) POSITIVE LAB % Antibody NEG Screen Performed By: #### TSPN #### [place] [address] HPV W/GENOTYPE Collected: 02/27/2018 Status: F Source: [place] 2:52 PM [facility] REPOSITORY TYPE CODE TESTS RESULT OUT OF REFERENCE UNITS RANGE LAB HPVT16 HPV HighRisk Negative for Type 16 HPV DNA high risk type 16 by PCR. LAB HPVT18 HPV HighRisk Negative for Type 18 HPV DNA high risk type 18 by PCR. LAB HPVHRO HPV HighRisk Negative for Other HPV DNA high risk types: 31,33,35,39,45 ,51,52,56,58,5 9,66,68 by PCR. Result Comment: This test was developed and its performance characteristics determined by [facility]'s [facility] [place] ([facility]). It has not been cleared or approved by the FDA. [facility] is regulated under CLIA as qualified to perform high-complexity testing. This test is used for clinical purposes. It should not be regarded as inv estigational or for research. Performed By: #### HPVHRR #### [facility] [employer] [facility] [address] [place] [address] CYTOLOGY Observed: 02/27/2018 Status: C Source: [place] 2:52 [facility] REPOSITORY ADDITIONAL PROCEDURES PRESENT Specimen originated from [facility] Specimen #: [id number] Submitting Physician: LIV CHAVEZ SPECIMEN SUBMITTED A: CERVICAL, SCREENING, FLUID FINAL DIAGNOSIS A. CERVICAL, SCREENING, FLUID Satisfactory for interpretation. Negative for intraepithelial lesion or malignancy. Acute inflammation. Fungal organisms morphologically consistent with Bisi species. This specimen has been analyzed by the ThinPrep Imaging System, an automated imaging and review system, which assists the laboratory in evaluating cells on ThinPrep Pap tests. Following automated imaging, selected taylor from every slide are reviewed by a creative project manager. YUMI Martinez(ASCP) (Electronic Signature) ADDITIONAL PROCEDURE(S) HUMAN PAPILLOMA VIRUS Date Ordered: 03/01/2018 Date Reported: 03/04/2018 Procedure Results and Interpretation Negative for HPV DNA high risk type 16 by PCR. Negative for HPV DNA high risk type 18 by PCR. Negative for HPV DNA high risk types: 31,33,35,39,45,51,52,56,58,59,66,68 by PCR. This test was developed and its performance characteristics determined by [facility]'s [facility] [place] ([facility]). It has not been cleared or approved by the FDA. [facility] is regulated under CLIA as qualified to perform high-complexity testing. This test is used for clinical purposes. It should not be regarded as investigational or for research. CLINICAL DATA ABNORMAL PAP, HPV Testing: Yes, automatic HPV patients over 30 Date of Last Menstrual Period: 12/27/17 Menstrual History: Clinical History: H/O LSIL STAINS A: CERVICAL, SCREENING, FLUID THIN PREP MILIEU THERAPIST Genoveva Chao M.D., Mulling Machine Operator Date of Report: 03/08/2018 Date of Procedure: 02/27/2018 Date of Receipt: 03/01/2018 Submitted by: LIV CHAVEZ Location: [facility] Diagnostic interpretation performed at [facility], [address] [place] [address]. The Pap Smear is a screening test for cervical cancer. False negative results occur with all screening tests, emphasizing the need for rescreening at recommended intervals, and clinical correlation. GC/CHLAMYDIA AMPLIF Collected: 02/27/2018 Status: F Source: [place] 2:40 PM [facility] REPOSITORY TYPE CODE TESTS RESULT OUT OF REFERENCE UNITS RANGE LAB GCCTSR GC/Chlam Amp Cervix Source LAB GCAMPL GC Negative Amplification for Neisseria gonorrhoeae by amplification. LAB CLAMPL Chlamydia Negative Amplif for Chlamydia trachomatis by amplification. Performed By: #### GCCT #### [facility] [address] [place] [address] PROGRESS Observed: 02/27/2018 Status: COMPLETED Source: [place] 2:02 PM [facility] REPOSITORY HNO ID: [id number] Author: Liv Chavez Service: (none) Author Type: Pick Up Man Type: Progress Notes Filed: 02/27/2018 3:15 PM Note Text: INITIAL OB ASSESSMENT OB Provider: Coreen Hall Ma HPI: Ezekiel Pillai is a 32 year old female here to establish Obstetrical Care. Patient's last menstrual period was 12/27/2017 (exact date). from OB Dating Form. Cycle length: 30 days Complaints: nausea without vomiting and significant fatigue was planned. Obstetric History T3 L3 SAB0 TAB0 Ectopic0 Multiple0 Live Births4 Comment: EBL 250cc Prior : never History of 4th degree laceration: No Patient's Risk Screening for delivery: History of abnormal pap: Yes - LSIL 2016 Prior treatment for cervical dysplasia: none. History of STDs: HPV Tobacco use: No Caffeine use: Yes - coffee about 28 oz. daily minimum Drug use: No Alcohol use: No Multivitamin with Folic acid: Yes, sometimes takes B12 supplement. Vitamin D3 OTC liquid Occupation: Works at [employer] on Weekends Protestant or heritage: No Would refuse blood transfusion if medically necessary: No BMI 41.77 kg/(m2) Patient BMI over 30? Yes, Consult to [facility] ordered Marital Status: Partner: Name: Kody Age: 36 Occupation: [employer] Gender: male History of STDs: None PAST MEDICAL HISTORY Diagnosis Date - Abnormal glandular Papanicolaou smear of cervix -2004 Abn. Pap smear (cervix) - Abnormal Pap smear of cervix 01/18 ascus neg hpv - Anemia - polycystic kidney disease affecting antepartum care of mother - Pilonidal cyst without mention of abscess PAST SURGICAL HISTORY Procedure Laterality Date - COLPOSCOPY (VAGINOSCOPY) 11/25/2007 Colposcopy - COLPOSCOPY (VAGINOSCOPY) 06/08/2008 Colposcopy - REMOVAL OF TONSILS,<12 Y/O 2002 Tonsillectomy - REMV PILONIDAL LESION EXTENS - REMV PILONIDAL LESION EXTENS 03/11/2008 Current Outpatient Prescriptions on File Prior to Visit: Cmezeyul-Fz-Hfc-Fe-FA ( VITAMIN) tab Take 1 tablet by mouth. cholecalciferol, Vitamin D3, (VITAMIN D3) 50,000 unit cap capsule Take 1 capsule by mouth once each week. FAMOTIDINE (PEPCID ORAL) Take by mouth. ibuprofen (MOTRIN) 600 mg tablet Take 1 tablet by mouth every 6 hours. (Patient not taking: Reported on 02/21/2018 ) No current facility-administered medications on file prior to visit. Review of Systems: GENERAL: Negative for: Fever or Chills and Positive for: Fatigue HEENT: Negative for: Headache, Impaired Vision, Ringing in Ears, Nosebleeds NECK: Negative for: Swelling, Pain, Stiffness RESPIRATORY: Negative for: Cough, Shortness of breath, Wheezing GASTROINTESTINAL: Negative for: Heartburn, Constipation, Diarrhea, Blood in stool, Vomiting and Positive for: Heartburn MUSCULOSKELETAL: Negative for: Muscle or joint pain, stiffness, Joint swelling NEUROLOGIC/PSYCHIATRIC: Negative for: Weakness, Paralysis, Numbness, Tingling, Tremor, Anxiety, Depression, Memory loss SKIN: Negative for: Rash, Itching GENITOURINARY: Negative for: (+) vaginal itching, vaginal discharge, hematuria or dysuria and Positive for: urinary frequency PHYSICAL EXAM: BP 124/82 Ht 5' 5 (1.65m) Wt 251 lb (113.9kg) LMP 12/27/2017 BMI 41.77 kg/(m2). GENERAL: pleasant female in no apparent distress DERMATOLOGY: Normal, without lesions, non-icteric and non-hirsute NECK: Supple, full range of motion, no adenopathy and thyroid normal CHEST: Normal inspiratory effort BREAST: soft, non-tender, symmetric, no dominant mass, normal nipple-areolar complex, no lymphadenopathy and no nipple discharge ABDOMEN: soft, non-tender and no masses NEURO: alert and oriented x3,exam grossly non-focal PELVIS: External genitalia normal without lesions. Perineal body intact. No vaginal or cervical lesions. Cervix closed. Uterus 8-9 week size. No adnexal masses or tenderness. Clinical Pelvimetry: Pelvimetry clinically assessed as adequate - proven to 8#7oz Limited OB ultrasound exam: single intrauterine , positive cardiac activity, crown-rump length 19.1mm and normal bilateral adnexa. C/w LMP dating 8+5 ASSESSMENT: 32 year old at 8+6 wks gestational age PLAN: 1) Patient oriented to practice. Discussed nutrition, folic acid supplementation, dietary guidelines, exercise, smoking, alcohol, caffeine, and drug use. Discussed routine OB labs including STD/HIV. Discussed aneuploidy screening options including serum screening and nuchal translucency. CF carrier screening discussed and declined. Patient unsure re: other aneuploidy screening options. Desires to talk with today and will schedule with next visit if interested in Sequential Screening. 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 Baby lived 10 hours. Genetics counseling and visit with [facility] provider for anatomy ultrasound visit discussed 3) Early 1 hour GCT today 4) Vaginal culture for vaginal itching collected to r/o vaginal infection 5) Hx of LSIL pap - pap done today Follow up in 4 weeks or sooner prn. Liv Chavez APRN.IDAM SBIRT Ezekiel Pillai was given the 4P's screening tool. Ezekiel answered as follows: OB Opioid Screening - Last Recorded (since 06/02/2017) Did any of your parents have a problem with alcohol or other drug use? (!) Yes (father has issues with ETOH) Does your partner have a problem with alcohol or other drug use? No In the past, have you had difficulties in your life because of alcohol or other drugs, including prescription medications? No In the past month have you drunk any alcohol or used other drugs? No Are you taking medication for pain during the either prescribed or not? No Based on the screen and further questions, she is considered at Low risk due to:No past or current use. Positive reinforcement of current behavior. Plan to rescreen early third trimester. Liv Chavez APRN.IDAM TOXICOLOGY SCREEN,UR Collected: 02/27/2018 Status: F Source: [place] 2:[address] [facility] REPOSITORY TYPE CODE TESTS RESULT OUT OF REFERENCE UNITS RANGE LAB UPCP2 Negative Negative Phencyclidin e, Urine Result Comment: Cutoff threshold at 25 ng/mL. LAB UBENZ2 Negative Benzodiazepines, Ur Negative Result Comment: Cutoff threshold at 200 ng/mL. LAB UCOC2 Negative Cocaine, Negative Urine Result Comment: Cutoff threshold at 300 ng/mL. LAB UAMPH2 Negative Amphetamines, Urine Negative Result Comment: Cutoff threshold at 1000 ng/mL. LAB UTHC2 Negative Cannabinoids, Urine Negative Result Comment: Cutoff threshold at 50 ng/mL. LAB UOPI2 Negative Opiates, Negative Urine Result Comment: Cutoff threshold at 300 ng/mL. LAB UBARB2 Negative Barbiturates, Urine Negative Result Comment: Cutoff threshold at 200 ng/mL. LAB UETOH <11 mg/dL <11 Ethanol, Urine LAB UOXYC Negative Oxycodone, Negative Urine Result Comment: Cutoff threshold at 100 ng/mL. Comment: Immunoassay screen only. Cross reactivity with other substances can occur with immunoassay screening. Detection of any drug(s) in this urine toxicology panel is presumptive only. These tests are for med ical purposes only and should not be used for compliance monitoring, legal, or forensic use. Samples should be within normal physiological conditions (e.g. pH). This assay does not include adulteration/specimen validity testing. In clinical settings, confirmatory testing is at the practitioner's discretion [1]. If clinically indicated, confirmation by high specificity, quantitative methodology, which includes adulteration/spec imen validity testing, may be requested on the same specimen through Client Services ([phone]) if contacted within 48 hours of initial testing. [1]Substance Abuse and Mental Health Services Administration (2012). Clinical Drug Testing in Primary Care Technical Assistance Publication Series 32. Department of Health and Human Services, [place], p.10. These tests were developed and their performance characteristics determined by [facility]'s [facility] [place] ( [facility]). They have not been cleared or a pproved by the FDA. [facility] is regulated under CLIA as qualified to perform high complexity testing. These tests are used for clinical purposes. They should not be regarded as investigational or for research. Performed By: #### UTOX2 #### [place] [address] Observed: 02/27/2018 Status: F Source: [place] URINE CULTURE 2:00 PM [facility] REPOSITORY Sp. Request/Comment: - Best Practice Alert: To ensure optimal transport conditions and accurate culture results transfer urine specimens to marin top C and S preservative tube. Culture Result - <10,000 CFU/ml Streptococcus agalactiae (Group B streptococcus) --> ABNORMAL ALERT No further workup --> ABNORMAL ALERT Performed By: #### URCUL #### [place] [id number] [place] [id number] Observed: 02/27/2018 Status: F Source: [place] BACT/CAND VAG GRM ST 3:17 AM [facility] REPOSITORY Sp. Request/Comment: - Swab Smear Result - BACTERIAL VAGINOSIS RESULT: Stain results consistent with normal vaginal amy. No Yeast observed Rare Polymorphonuclear leukocytes Performed By: #### BVCNSM #### [place] [address] PROGRESS Observed: 02/21/2018 Status: COMPLETED Source: [place] 3:13 PM [facility] REPOSITORY HNO ID: [id number] Author: Teresa Tovar RN Service: (none) Author Type: (none) Type: Progress Notes Filed: 02/21/2018 3:37 PM Note Text: #: 1, Date: 11/10/10, Sex: Female, Weight: 7 lb (3.175 kg), GA: 39w6d, Delivery: VAGINAL , Apgar1: 8, Apgar5: 9, Living: Living, Comments: SROM #: 2, Date: 09/04/12, Sex: Male, Weight: 6 lb 7 oz (2.92 kg), GA: 36w3d, Delivery: Vaginal, Spontaneous Delivery, Apgar1: 8, Apgar5: 9, Living: Living, Comments: PROM, pitocin induction, 1st degree tear, EBL 200cc #: 3, Date: 10/12/14, Sex: Female, Weight: 6 lb 12 oz (3.062 kg), GA: 39w1d, Delivery: None, Apgar1: 8, Apgar5: 9, Living: Living, Comments: delivered baby after being at hospital 1 hour, declined 17P #: 4, Date: 11/20/16, Sex: Male, Weight: 8 lb 7.8 oz (3.85 kg), GA: 37w1d, Delivery: Vaginal, Spontaneous Delivery, Apgar1: 7, Apgar5: 7, Living: Demise, Comments: 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,dysplastic kidneys, anhydramnios #: 5, Date: None, Sex: None, Weight: None, GA: None, Delivery: None, Apgar1: None, Apgar5: None, Living: None, Comments: None CNNURSE Observed: 02/21/2018 Status: COMPLETED Source: [place] 2:00 PM [facility] REPOSITORY Nurse Visit (WOOB) DAYANARAEZEKIEL SALAZAR ([id number]) 1985 F Date Time Provider Department 02/21/18 2:00 PM NURSE [facility] During your visit today, we recorded the following information about you: Last Period 12/27/17 Teresa Tovar RN 02/21/2018 3:02 PM Signed SEQUENTIAL SCREENINGS The [facility] offers sequential screenings for women who are interested in screenings for chromosomal abnormalities and certain defects during a . The sequential screen combines ultrasound and blood tests to determine the risk of chromosomal abnormalities, including Down's Syndrome (Trisomy 21) and Trisomy 18, as well as open neural tube defects including spina bifida. Ultrasound examination is performed between 11 weeks and 13 weeks gestational age. Blood tests are drawn after the ultrasound and again later in the between 15 and 21 weeks gestational age. Please let your physician know if you are interested in this testing. It will require an appointment with our field technician. This is not an ultrasound performed by a physician in our office during a routine visit. SIGNS AND SYMPTOMS OF LABOR 1. Contractions every 10 minutes or more often 2. Clear, pink, or brownish fluid (water) leaking from vagina 3. Feeling that baby is pushing down, pressure 4. Low, dull backache 5. Cramps that feel like a period 6. Cramps with or without diarrhea If you notice any of the above symptoms, contact our office at [phone] and ask to speak with a nurse. After hours, you can call [facility] at [phone] OR call [facility] at [phone] and ask to have the doctor peoplesoft hcm consultant paged. If you consider this an emergency, dial 9-1-1 or go to your nearest emergency department. Cord-Blood Banking Up until recently, the umbilical cord--along with the blood that remained in it after a baby was born and the cord cut--was simply discarded by the hospital. Then, in the late 1980s, researchers discovered that cord blood possessed unusual properties that made it useful in the treatment of patients with some cancers and other illnesses. While the actual process of collecting cord blood is straightforward, many parents are not even aware that this option now exists, much less familiar with all the issues involved. The case for saving your baby's cord blood The blood running back and forth between your baby and the placenta is full of immature cells called stem cells. Unlike embryonic stem cells, which have the ability to develop into any type of body cell, cord-blood stem cells already are locked into a certain, vital function: making all the different components of the blood, such as platelets, white blood cells, and red blood cells-serving, in effect, like bone marrow. When transfused into a patient whose own blood cells have faulty genetic coding or have been destroyed by chemotherapy or other cancer treatments, the cord-blood cells can implant themselves in the bone marrow and generate legions of new, healthy cells. These days, cord-blood transplants most commonly are used in cancer patients when a donor can't be found for a bone-marrow transplant. The treatment is particularly effective in young patients-the [facility] Cord Blood [facility] reports a 70 percent success rate in children, but only 20 to 40 percent in adults. Researchers envision improving those odds and see many future applications as well, such as curing sickle cell disease and other blood-related genetic illnesses. So there is a possibility that your child, or someone else, may need these super-healthy and versatile cells one day. The drawbacks Aside from not knowing about this medical option, the main reason most people do not save their baby's stem cells is cost. In a private blood bank, the initial costs run from $275 to $1,500. Most also charge a yearly storage fee of $50 to $95. The advantage of using a private bank is that your sample is saved for only you to use. An alternative to private banking Public cord-blood chowdary are an alternative. These cost no money to use, but your sample is not specifically saved for you. Another person with a more immediate need may use it. If the time should come that you need stem cells, yours may still be available, or you may use donations from other people without charge. You also can direct your sample to go to a relative with an immediate need if the blood type matches. Anyone else needing to use stem cells from a public bank who has not been a donor must pay for it, sometimes tens of thousands of dollars. Will my family benefit from saving stem cells? Right now, situations in which stem cells would be helpful are quite rare. As mentioned earlier, stem-cell transplants are most commonly used for rare genetic conditions and for some types of cancer, including leukemia and lymphoma. And even with these present uses, many questions remain. In cancer treatment, for example, some researchers are concerned about the wisdom of transplanting back into the child the same cells that already showed a propensity to become malignant. Doctors also aren't sure if the number of cells taken at the time of would be enough to treat a full-grown 16-year-old. It is also not completely clear how active the cells would be after years of being stored. The treatment is so new and rare, we just don't have the data yet to resolve these important issues. What do the experts say? The [place] [employer] encourages philanthropic blood banking in public chowdary, but only for families with a current or potential need. Blood-bank proponents encourage any kind of banking, pointing out that research is getting closer and closer to many diverse, live-saving applications. How do I decide? Each family must weigh the pros and cons for themselves. Some families say that any cost is worth their peace of mind. Others say that in the face of uncertainty about the effectiveness of the treatment, they will use their resources elsewhere. Some choose the middle ground of donating publicly, knowing that their sample might benefit another family, if not themselves. For more information, ask your doctor or nurse, and be sure to check out our article on the technical aspects of cord-blood banking. Technical Aspects of Cord-Blood Banking If you are interested in storing your baby's umbilical-cord blood because of its possible use in emerging medical treatments, you must make arrangements with a blood bank before your child is born. The collection procedure is quite simple: After delivery of the baby, the umbilical cord is clamped and cut in the usual way. The blood that remains in the umbilical-cord vessels is then collected in sterile containers. The blood may be removed from the cord with a large needle or allowed to flow freely, depending on the company's collection system. The containers may look like large test tubes or like the plastic bags used in a blood bank. It does not cause the mother or the baby any pain to collect the blood, and no blood is taken that the baby needs at the moment. The nurse, labor trainer, or physician will then label the samples, check them over with you, and package them for a special pickup arranged with a commercial carrier. When the blood arrives at the blood-bank facility, it is processed and the parents are notified. It is then kept in an advanced storage system for years. How do I know that my sample is safe? Power outages and bankruptcies potentially could threaten any organization, but so far none have been reported. It is to be hoped that the scientists in these chowdary would arrange for safe transfer to another facility if the need arose. YOU MUST MAKE ARRANGEMENTS AHEAD OF TIME! Public cord-blood chowdary--DONATION: [employer] [phone] [facility]'s Placental Blood Program, [facility] Umbilical Cord Blood Bank, Private cord-blood chowdary--SAVING FOR YOUR OWN USE: [employer], (I think this is the least expensive) [employer] [phone] [employer], [phone]) [employer] [place] Cord Blood [facility], [phone], [phone] [place] [facility], Cord Blood Registry, [phone]) [employer], An Internet search may provide you with additional listings. Teresa Tovar RN 02/21/2018 3:37 PM Signed #: 1, Date: 11/10/10, Sex: Female, Weight: 7 lb (3.175 kg), GA: 39w6d, Delivery: VAGINAL , Apgar1: 8, Apgar5: 9, Living: Living, Comments: SROM #: 2, Date: 09/04/12, Sex: Male, Weight: 6 lb 7 oz (2.92 kg), GA: 36w3d, Delivery: Vaginal, Spontaneous Delivery, Apgar1: 8, Apgar5: 9, Living: Living, Comments: PROM, pitocin induction, 1st degree tear, EBL 200cc #: 3, Date: 10/12/14, Sex: Female, Weight: 6 lb 12 oz (3.062 kg), GA: 39w1d, Delivery: None, Apgar1: 8, Apgar5: 9, Living: Living, Comments: delivered baby after being at hospital 1 hour, declined 17P #: 4, Date: 11/20/16, Sex: Male, Weight: 8 lb 7.8 oz (3.85 kg), GA: 37w1d, Delivery: Vaginal, Spontaneous Delivery, Apgar1: 7, Apgar5: 7, Living: Demise, Comments: 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,dysplastic kidneys, anhydramnios #: 5, Date: None, Sex: None, Weight: None, GA: None, Delivery: None, Apgar1: None, Apgar5: None, Living: None, Comments: None Referring Provider: SELF [200] Allergies As of Date: 02/21/2018 (No Known Allergies) Date Reviewed: 02/21/2018 Reviewed by: Teresa Tovar RN - Fully Assessed Reason for Visit: Care [86] Cmt: Pre-New OB Primary Visit Diagnosis: in first trimester with history of , antepartum [O09.291] Other Visit Diagnoses: with history of [O09.299] Current with history of pre-term labor in first trimester [O09.211] Obesity complicating , first trimester [O99.211] Order(s):JUAN PT ED HUSBANDRY TECHNICIAN [[id number]] Order #: [id number]: [id number] JUAN PT ED HUSBANDRY TECHNICIAN [[id number]] Order #: [id number]: [id number] Prescriptions as of 02/21/2018 Sig: VITAMIN,CALCIUM,MINE* Take 1 tablet by mouth. CHOLECALCIFEROL (VITAMIN D3) * Take 1 capsule by mouth once * IBUPROFEN 600 MG TABLET Take 1 tablet by mouth every * Patient not taking: Reported on 02/21/2018 PEPCID ORAL Take by mouth. Problem List As Of Date 02/21/2018 Noted Resolved Pilonidal cyst without mention of abscess [L05.*INVALID FOR*01/01/2012 Moderate dysplasia of cervix [N87.1] INVALID FOR*11/26/2014 Condyloma acuminatum [A63.0] INVALID FOR*01/01/2012 Supervision of normal first [Z34.00] INVALID FOR*01/01/2012 Candidiasis of vulva and vagina [B37.3] INVALID FOR*01/01/2012 with uncertain dates [Z34.90] INVALID FOR*02/16/2012 More... Obesity in [O99.210] INVALID FOR*01/02/2017 More... Tobacco use in [O99.330] INVALID FOR*01/06/2013 More... Supervision of other normal [Z34.80] INVALID FOR*01/06/2013 Uterine size date discrepancy [O26.849] INVALID FOR*01/06/2013 GBS (group B streptococcus) UTI complicating pr*INVALID FOR*11/26/2014 More... Encounter for supervision of normal first pregn*INVALID FOR*05/10/2016 Encounter for supervision of normal i*INVALID FOR*01/02/2017 Current with history of pre-term labo*INVALID FOR*01/02/2017 More... polycystic kidney disease affecting antep*INVALID FOR*01/02/2017 More... Positive GBS test [B95.1] INVALID FOR*01/02/2017 [Z34.90] INVALID FOR*01/02/2017 with history of [O09.2*INVALID FOR* More... Obesity complicating , first trimester*INVALID FOR* More... Other instructions from your clinician: SEQUENTIAL SCREENINGS The [facility] offers sequential screenings for women who are interested in screenings for chromosomal abnormalities and certain defects during a . The sequential screen combines ultrasound and blood tests to determine the risk of chromosomal abnormalities, including Down's Syndrome (Trisomy 21) and Trisomy 18, as well as open neural tube defects including spina bifida. Ultrasound examination is performed between 11 weeks and 13 weeks gestational age. Blood tests are drawn after the ultrasound and again later in the between 15 and 21 weeks gestational age. Please let your physician know if you are interested in this testing. It will require an appointment with our field technician. This is not an ultrasound performed by a physician in our office during a routine visit. SIGNS AND SYMPTOMS OF LABOR 1. Contractions every 10 minutes or more often 2. Clear, pink, or brownish fluid (water) leaking from vagina 3. Feeling that baby is pushing down, pressure 4. Low, dull backache 5. Cramps that feel like a period 6. Cramps with or without diarrhea If you notice any of the above symptoms, contact our office at [phone] and ask to speak with a nurse. After hours, you can call [facility] at [phone] OR call [facility] at [phone] and ask to have the doctor peoplesoft hcm consultant paged. If you consider this an emergency, dial [phone]-- or go to your nearest emergency department. Cord-Blood Banking Up until recently, the umbilical cord--along with the blood that remained in it after a baby was born and the cord cut--was simply discarded by the hospital. Then, in the late , researchers discovered that cord blood possessed unusual properties that made it useful in the treatment of patients with some cancers and other illnesses. While the actual process of collecting cord blood is straightforward, many parents are not even aware that this option now exists, much less familiar with all the issues involved. The case for saving your baby's cord blood The blood running back and forth between your baby and the placenta is full of immature cells called stem cells. Unlike embryonic stem cells, which have the ability to develop into any type of body cell, cord-blood stem cells already are locked into a certain, vital function: making all the different components of the blood, such as platelets, white blood cells, and red blood cells-serving, in effect, like bone marrow. When transfused into a patient whose own blood cells have faulty genetic coding or have been destroyed by chemotherapy or other cancer treatments, the cord-blood cells can implant themselves in the bone marrow and generate legions of new, healthy cells. These days, cord-blood transplants most commonly are used in cancer patients when a donor can't be found for a bone-marrow transplant. The treatment is particularly effective in young patients- the [facility] Cord Blood Bank reports a 70 percent success rate in children, but only 20 to 40 percent in adults. Researchers envision improving those odds and see many future applications as well, such as curing sickle cell disease and other blood-related genetic illnesses. So there is a possibility that your child, or someone else, may need these super-healthy and versatile cells one day. The drawbacks Aside from not knowing about this medical option, the main reason most people do not save their baby's stem cells is cost. In a private blood bank, the initial costs run from $275 to $1,500. Most also charge a yearly storage fee of $50 to $95. The advantage of using a private bank is that your sample is saved for only you to use. An alternative to private banking Public cord-blood chowdary are an alternative. These cost no money to use, but your sample is not specifically saved for you. Another person with a more immediate need may use it. If the time should come that you need stem cells, yours may still be available, or you may use donations from other people without charge. You also can direct your sample to go to a relative with an immediate need if the blood type matches. Anyone else needing to use stem cells from a public bank who has not been a donor must pay for it, sometimes tens of thousands of dollars. Will my family benefit from saving stem cells? Right now, situations in which stem cells would be helpful are quite rare. As mentioned earlier, stem-cell transplants are most commonly used for rare genetic conditions and for some types of cancer, including leukemia and lymphoma. And even with these present uses, many questions remain. In cancer treatment, for example, some researchers are concerned about the wisdom of transplanting back into the child the same cells that already showed a propensity to become malignant. Doctors also aren't sure if the number of cells taken at the time of would be enough to treat a full-grown 16-year-old. It is also not completely clear how active the cells would be after years of being stored. The treatment is so new and rare, we just don't have the data yet to resolve these important issues. What do the experts say? The [place] [employer] encourages philanthropic blood banking in public chowdary, but only for families with a current or potential need. Blood-bank proponents encourage any kind of banking, pointing out that research is getting closer and closer to many diverse, live-saving applications. How do I decide? Each family must weigh the pros and cons for themselves. Some families say that any cost is worth their peace of mind. Others say that in the face of uncertainty about the effectiveness of the treatment, they will use their resources elsewhere. Some choose the middle ground of donating publicly, knowing that their sample might benefit another family, if not themselves. For more information, ask your doctor or nurse, and be sure to check out our article on the technical aspects of cord-blood banking. Technical Aspects of Cord-Blood Banking If you are interested in storing your baby's umbilical- cord blood because of its possible use in emerging medical treatments, you must make arrangements with a blood bank before your child is born. The collection procedure is quite simple: After delivery of the baby, the umbilical cord is clamped and cut in the usual way. The blood that remains in the umbilical-cord vessels is then collected in sterile containers. The blood may be removed from the cord with a large needle or allowed to flow freely, depending on the company's collection system. The containers may look like large test tubes or like the plastic bags used in a blood bank. It does not cause the mother or the baby any pain to collect the blood, and no blood is taken that the baby needs at the moment. The nurse, labor trainer, or physician will then label the samples, check them over with you, and package them for a special pickup arranged with a commercial carrier. When the blood arrives at the blood- bank facility, it is processed and the parents are notified. It is then kept in an advanced storage system for years. How do I know that my sample is safe? Power outages and bankruptcies potentially could threaten any organization, but so far none have been reported. It is to be hoped that the scientists in these chowdary would arrange for safe transfer to another facility if the need arose. YOU MUST MAKE ARRANGEMENTS AHEAD OF TIME! Public cord-blood chowdary--DONATION: [employer] [phone] [facility], [facility], Private cord-blood chowdary--SAVING FOR YOUR OWN USE: [employer], (I think this is the least expensive) [employer] [phone] [employer], [phone] [employer] [facility] [facility], [phone], [phone] [place] [facility], [facility], [phone]) [employer], An Internet search may provide you with additional listings. Disposition: Return in about 6 days (around 02/27/2018) for New OB with Liv Chavez. Follow-up and Disposition History Recorded Encounter Status:Closed by TERESA TOVAR RN on 02/21/18 PROGRESS Observed: 11/12/2017 Status: COMPLETED Source: [place] 4:09 PM [facility] REPOSITORY HNO ID: [id number] Author: Elizabeth Smyth (Quality Measurement Specialist) [facility]: (none) Author Type: Nurse Practitioner Type: Progress Notes Filed: 11/12/2017 4:13 PM Note Text: CC: Ezekiel Pillai is a 32 year old female who presents for weight loss medication follow up. HPI Finishing Adipex. Denies: abdominal pain, nausea, vomiting, diarrhea, fevers, constipation, headache, change in urination, lightheadedness, weakness, numbness or tingling to arms or legs, edema, palpitations, sleep disturbances, impairment of concentration/attention, difficulty with memory, speech or language problems (particularly word-finding difficulties). If DM any hypo/hyperglycemiaNot applicable DIET No change Exercise routine: YES Weight/BMI Last 1 Encounter Wt Readings: Date: Wt: 11/12/2017 110.2 kg (243 lb) BMI 39.22 kg/(m2) Last visit Wt: 112.5 kg (248 lb) BMI: 40.03 kg/(m2) Weight change since last visit: 21lbs in 3 months Also reports numbness to right 1st metatarsal x 1 year. ROS as above, otherwise non-contributory. Reviewed PMHx, PSHx, social Hx, medications and allergies. PHYSICAL EXAM BP 110/82 Pulse 80 Resp 16 Wt 110.2 kg (243 lb) BMI 39.22 kg/m? General Appearance: well appearing, in no acute distress, alert, obese Pysch: mood and affect broad and appropriate Lungs: Lungs clear to auscultation. No wheezing, rhonchi, rales Heart: RRR without murmur, gallop, or rubs. No ectopy Abdomen: Abdomen soft, non-tender. Bowel sounds normal. No masses, organomegaly Right foot: WNL ASSESSMENT/PLAN: 1. Obesity, Class II, BMI 35-39.9 - ICD9: 278.00, ICD10: E66.9 (primary diagnosis) - PHENTERMINE 3.75 MG-TOPIRAMATE ER 23 MG CAPSULE,EXT.RELEASE 24HR MPHAS - PHENTERMINE 7.5 MG-TOPIRAMATE ER 46 MG CAPSULE,EXT.RELEASE 24HR MPHASE - Continue diet consisting of counting calories, counting fat grams and counting carbohydrates. - Reduce sugary drinks of artificial juices and sodas and replace with water and low calorie Crystal Light. - Healthy Snack alternatives have been discussed and will attempt more fruits and vegetables. - encouraged 3 meals a day - Continueexercise or meaningful activity for 20 minutes at lest 3 times a day PDMP website checked and validated. All prescriptions have been APPROPRIATELY filled. No suspicious activity was identified. 11/12/2017 by Elizabeth Dickson APRN.VERO - reviewed SE, medication expectations, required weight loss of 5%, required monthly monitoring and medication duration of use (3 months on 6 months off) 2. Numbness and tingling - ICD9: 782.0, ICD10: R20.0, R20.2 - EMG(NEURO/NI) Elizabeth Dickson APRN.CNP CNOV Observed: 11/12/2017 Status: COMPLETED Source: [place] 2:00 PM [facility] REPOSITORY Office Visit (FAMPWS) EZEKIEL PILLAI ([id number]) 1985 F Date Time Provider Department 11/12/17 2:00 PM ELIZABETH DICKSON (VERO) [facility] During your visit today, we recorded the following information about you: Pulse Respiration Blood pressure Weight 80/minute 16/minute 110/82 110.2 kg Elizabeth Dickson APRN.CNP 11/12/2017 4:13 PM Signed CC: Ezekiel Pillai is a 32 year old female who presents for weight loss medication follow up. HPI Finishing Adipex. Denies: abdominal pain, nausea, vomiting, diarrhea, fevers, constipation, headache, change in urination, lightheadedness, weakness, numbness or tingling to arms or legs, edema, palpitations, sleep disturbances, impairment of concentration/attention, difficulty with memory, speech or language problems (particularly word-finding difficulties). If DM any hypo/hyperglycemiaNot applicable DIET No change Exercise routine: YES Weight/BMI Last 1 Encounter Wt Readings: Date: Wt: 11/12/2017 110.2 kg (243 lb) BMI 39.22 kg/(m2) Last visit Wt: 112.5 kg (248 lb) BMI: 40.03 kg/(m2) Weight change since last visit: 21lbs in 3 months Also reports numbness to right 1st metatarsal x 1 year. ROS as above, otherwise non-contributory. Reviewed PMHx, PSHx, social Hx, medications and allergies. PHYSICAL EXAM BP 110/82 Pulse 80 Resp 16 Wt 110.2 kg (243 lb) BMI 39.22 kg/m? General Appearance: well appearing, in no acute distress, alert, obese Pysch: mood and affect broad and appropriate Lungs: Lungs clear to auscultation. No wheezing, rhonchi, rales Heart: RRR without murmur, gallop, or rubs. No ectopy Abdomen: Abdomen soft, non-tender. Bowel sounds normal. No masses, organomegaly Right foot: WNL ASSESSMENT/PLAN: 1. Obesity, Class II, BMI 35-39.9 - ICD9: 278.00, ICD10: E66.9 (primary diagnosis) - PHENTERMINE 3.75 MG-TOPIRAMATE ER 23 MG CAPSULE,EXT.RELEASE 24HR MPHAS - PHENTERMINE 7.5 MG-TOPIRAMATE ER 46 MG CAPSULE,EXT.RELEASE 24HR MPHASE - Continue diet consisting of counting calories, counting fat grams and counting carbohydrates. - Reduce sugary drinks of artificial juices and sodas and replace with water and low calorie Crystal Light. - Healthy Snack alternatives have been discussed and will attempt more fruits and vegetables. - encouraged 3 meals a day - Continueexercise or meaningful activity for 20 minutes at lest 3 times a day PDMP website checked and validated. All prescriptions have been APPROPRIATELY filled. No suspicious activity was identified. 11/12/2017 by Elizabeth Dickson APRN.SKI LIFT ATTENDANT - reviewed SE, medication expectations, required weight loss of 5%, required monthly monitoring and medication duration of use (3 months on 6 months off) 2. Numbness and tingling - ICD9: 782.0, ICD10: R20.0, R20.2 - EMG(NEURO/NI) Elizabeth Dickson APRN.SKI LIFT ATTENDANT Referring Provider: ELIZABETH DICKSON ([facility]) [[id number]] Allergies As of Date: 11/12/2017 (No Known Allergies) Date Reviewed: 11/12/2017 Reviewed by: Nikolas Tao LPN - Fully Assessed Reason for Visit: Recheck [92] Cmt: 1 month follow up Primary Visit Diagnosis:Obesity, Class II, BMI 35-39.9 [E66.9] Other Visit Diagnosis:Numbness and tingling [R20.0, R20.2] Order(s):phentermine-topiramate ER (QSYMIA) 3.75-23 mg 24 Hr CapsuleTake 1 capsule by mouth once daily for 14 days. Take 3.75mg/23mg for 14 days, then increase to 7.5mg/46mg for 10 weeks.Disp: 14 capsuleRfl: 0 phentermine-topiramate ER (QSYMIA) 7.5-46 mg 24 Hr CapsuleTake 1 capsule by mouth once daily for 30 days.Disp: 30 capsuleRfl: 0 EMG(NEURO/NI) [[id number]] Order #: [id number]: 1 FUTURE Prescriptions as of 11/12/2017 Sig: CHOLECALCIFEROL (VITAMIN D3) * Take 1 capsule by mouth once * IBUPROFEN 600 MG TABLET Take 1 tablet by mouth every * PEPCID ORAL Take by mouth. PHENTERMINE 3.75 MG-TOPIRAMAT* Take 1 capsule by mouth once * PHENTERMINE 7.5 MG-TOPIRAMATE* Take 1 capsule by mouth once * Problem List As Of Date 11/12/2017 Noted Resolved Pilonidal cyst without mention of abscess [L05.*INVALID FOR*01/01/2012 Moderate dysplasia of cervix [N87.1] INVALID FOR*11/26/2014 Condyloma acuminatum [A63.0] INVALID FOR*01/01/2012 Supervision of normal first [Z34.00] INVALID FOR*01/01/2012 Candidiasis of vulva and vagina [B37.3] INVALID FOR*01/01/2012 with uncertain dates [Z34.90] INVALID FOR*02/16/2012 More... Obesity in [O99.210] INVALID FOR*01/02/2017 More... Tobacco use in [O99.330] INVALID FOR*01/06/2013 More... Supervision of other normal [Z34.80] INVALID FOR*01/06/2013 Uterine size date discrepancy [O26.849] INVALID FOR*01/06/2013 GBS (group B streptococcus) UTI complicating pr*INVALID FOR*11/26/2014 More... Encounter for supervision of normal first pregn*INVALID FOR*05/10/2016 Encounter for supervision of normal i*INVALID FOR*01/02/2017 Current with history of pre-term labo*INVALID FOR*01/02/2017 More... polycystic kidney disease affecting antep*INVALID FOR*01/02/2017 More... Positive GBS test [B95.1] INVALID FOR*01/02/2017 [Z34.90] INVALID FOR*01/02/2017 Prescriptions ordered this encounter Disp Refills Start End PHENTERMINE 3.75 MG-TOPIRAMATE ER 23* 14 c* 0 11/12/2017 11/26/2017 Class: Print RX Route: ORAL Sig: Take 1 capsule by mouth once daily for 14 days. Take 3.75mg/23mg for 14 days, then increase to 7.5mg/46mg for 10 weeks. PHENTERMINE 7.5 MG-TOPIRAMATE ER 46 * 30 c* 0 11/12/2017 12/12/2017 Class: Print RX Route: ORAL Sig: Take 1 capsule by mouth once daily for 30 days. Medications Discontinued During This Encounter Phentermine HCl (ADIPEX-P) 37.5 mg t* 30 t* 0 10/17/2017 11/12/2017 Class: Print RX Route: ORAL Sig: Take 1 tablet by mouth once daily for 30 days. Body mass index is 42.61 kg/m?. Disc: Reason for discontinue is not on file. Encounter Status:Closed by ELIZABETH DICKSON CNP on 11/12/17 PROGRESS Observed: 10/17/2017 Status: COMPLETED Source: [place] 2:00 PM [facility] REPOSITORY HNO ID: [id number] Author: Elizabeth Smyth (Vero) [facility] Service: (none) Author Type: Nurse Practitioner Type: Progress Notes Filed: 10/17/2017 2:13 PM Note Text: CC: Ezekiel Pillai is a 32 year old female who presents for weight loss medication follow up. HPI Currently taking adipex . Starting Month 3 of 3 Denies: abdominal pain, nausea, vomiting, diarrhea, fevers, constipation, headache, change in urination, lightheadedness, weakness, numbness or tingling to arms or legs, edema, palpitations, sleep disturbances, impairment of concentration/attention, difficulty with memory, speech or language problems (particularly word-finding difficulties). Reports: dry mouth If DM any hypo/hyperglycemiaNot applicable DIET Serving of fruits:1-2 Servings of vegetables:1-2 Servings of protein:3-5 Fluid intake:Water: 6 glasses per day Do you Skip meals:YES Which meals do you tend to skip? Breakfast and Lunch Exercise routine: YES Program: Minimal exercise Frequency: 2 times per week at 20 min Weight/BMI Last 1 Encounter Wt Readings: Date: Wt: 10/17/2017 112.5 kg (248 lb) BMI 40.03 kg/(m2) Last visit Wt: 115.7 kg (255 lb) BMI: 41.16 kg/(m2) Weight change since last visit: How much: 7, How lon month ROS as above, otherwise non-contributory. Reviewed PMHx, PSHx, social Hx, medications and allergies. PHYSICAL EXAM BP 100/71 Pulse 85 Temp (!) 35.8 ?C (96.4 ?F) (Temporal Artery) Resp 14 Wt 112.5 kg (248 lb) SpO2 99% BMI 40.03 kg/m? General Appearance: well appearing, in no acute distress, alert, obese Pysch: mood and affect broad and appropriate Lungs: Lungs clear to auscultation. No wheezing, rhonchi, rales Heart: RRR without murmur, gallop, or rubs. No ectopy Abdomen: Abdomen soft, non-tender. Bowel sounds normal. No masses, organomegaly ASSESSMENT/PLAN: 1. Obesity, Class III, BMI 40-49.9 (morbid obesity) (HCC) - ICD9: 278.01, ICD10: E66.01 - PHENTERMINE 37.5 MG TABLET - Begin diet consisting of counting calories, counting fat grams and counting carbohydrates. - Reduce sugary drinks of artificial juices and sodas and replace with water and low calorie Crystal Light. - Healthy Snack alternatives have been discussed and will attempt more fruits and vegetables. - encouraged 3 meals a day - Beginexercise or meaningful activity for 20 minutes at lest 3 times a day PDMP website checked and validated. All prescriptions have been APPROPRIATELY filled. No suspicious activity was identified. 10/17/2017 by Elizabeth Dickson APRN.VERO - reviewed SE, medication expectations, required weight loss of 5%, required monthly monitoring and medication duration of use (3 months on 6 months off) Elizabeth Dickson APRN.CNP CNOV Observed: 10/17/2017 Status: COMPLETED Source: [place] 2:00 PM [facility] REPOSITORY Office Visit (FAMPWS) EZEKIEL PILLAI ([id number]) 1985 F Date Time Provider Department 10/17/17 2:00 PM [facility] your visit today, we recorded the following information about you: Temperature Pulse Respiration Blood pressure 96.4 degrees 85/minute 14/minute 100/71 Weight 112.5 kg Elizabeth Dickson APRN.CNP 10/17/2017 2:13 PM Signed CC: Ezekiel Pillai is a 32 year old female who presents for weight loss medication follow up. HPI Currently taking adipex . Starting Month 3 of 3 Denies: abdominal pain, nausea, vomiting, diarrhea, fevers, constipation, headache, change in urination, lightheadedness, weakness, numbness or tingling to arms or legs, edema, palpitations, sleep disturbances, impairment of concentration/attention, difficulty with memory, speech or language problems (particularly word-finding difficulties). Reports: dry mouth If DM any hypo/hyperglycemiaNot applicable DIET Serving of fruits:1-2 Servings of vegetables:1-2 Servings of protein:3-5 Fluid intake:Water: 6 glasses per day Do you Skip meals:YES Which meals do you tend to skip? Breakfast and Lunch Exercise routine: YES Program: Minimal exercise Frequency: 2 times per week at 20 min Weight/BMI Last 1 Encounter Wt Readings: Date: Wt: 10/17/2017 112.5 kg (248 lb) BMI 40.03 kg/(m2) Last visit Wt: 115.7 kg (255 lb) BMI: 41.16 kg/(m2) Weight change since last visit: How much: 7, How lon month ROS as above, otherwise non-contributory. Reviewed PMHx, PSHx, social Hx, medications and allergies. PHYSICAL EXAM BP 100/71 Pulse 85 Temp (!) 35.8 ?C (96.4 ?F) (Temporal Artery) Resp 14 Wt 112.5 kg (248 lb) SpO2 99% BMI 40.03 kg/m? General Appearance: well appearing, in no acute distress, alert, obese Pysch: mood and affect broad and appropriate Lungs: Lungs clear to auscultation. No wheezing, rhonchi, rales Heart: RRR without murmur, gallop, or rubs. No ectopy Abdomen: Abdomen soft, non-tender. Bowel sounds normal. No masses, organomegaly ASSESSMENT/PLAN: 1. Obesity, Class III, BMI 40-49.9 (morbid obesity) (HCC) - ICD9: 278.01, ICD10: E66.01 - PHENTERMINE 37.5 MG TABLET - Begin diet consisting of counting calories, counting fat grams and counting carbohydrates. - Reduce sugary drinks of artificial juices and sodas and replace with water and low calorie Crystal Light. - Healthy Snack alternatives have been discussed and will attempt more fruits and vegetables. - encouraged 3 meals a day - Beginexercise or meaningful activity for 20 minutes at lest 3 times a day PDMP website checked and validated. All prescriptions have been APPROPRIATELY filled. No suspicious activity was identified. 10/17/2017 by Elizabeth Dickson APRN.VERO - reviewed SE, medication expectations, required weight loss of 5%, required monthly monitoring and medication duration of use (3 months on 6 months off) Elizabeth Dickson APRN.VERO Dickson APRN.VERO 10/17/2017 2:05 PM Signed Jillian Mock TRYING TO LOSE WEIGHT? Your Body mass index is 40.03 kg/m?. (Target BMI: 19-25) A person with a BMI between 25 and 29.9 is considered overweight A person with a BMI of 30 or greater is considered to be obese SETTING A WEIGHT LOSS GOAL: Lose 10% of body weight over six months, about 1-2 lbs per week LIFESTYLE CHANGES ? The goals of lifestyle changes are to help you change your eating habits, become more active, and be more aware of how much you eat and exercise, helping you to make healthier choices. This can be broken down into three steps: 1. Triggers to eat ? Determining what triggers you to eat involves figuring out what foods you eat and where and when you eat. To figure out what triggers you to eat, keep a record for a few days of everything you eat, the places where you eat, how often you eat, and the emotions you were feeling when you ate. For some people, the trigger is related to a certain time of day or night. For others, the trigger is related to a certain place, like sitting at a desk working. 2. Eating ? You can change your eating habits by breaking the chain of events between the trigger for eating and eating itself. There are many ways to do this. For instance, you can: ? Limit where you eat to a few places (eg, dining room) ? Restrict the number of utensils (eg, only a fork) used for eating ? Drink a sip of water between each bite ? Chew your food a certain number of times ? Get up and stop eating every few minutes 3. What happens after you eat ? ? Rewarding yourself for good eating behaviors can help you to develop better habits. This is not a reward for weight loss; instead, it is a reward for changing unhealthy behaviors. ? Do not use food as a reward. Some people find money, clothing, or personal care (eg, a hair cut, manicure, or massage) to be effective rewards. Treat yourself immediately after making better eating choices to reinforce the value of the good behavior. ? You need to have clear behavior goals, and you must have a time frame for reaching your goals. Reward small changes along the way to your final goal. Other factors that contribute to successful weight loss ? ? Establish a jamey system ? Having a friend or family member available to provide support and reinforce good behavior is very helpful. The support person needs to understand your goals. ? Learn to be strong ? Learning to be strong when tempted by food is an important part of losing weight. As an example, you will need to learn how to say no and continue to say no when urged to eat at parties and social gatherings. Develop strategies for events before you go, such as eating before you go or taking low-calorie snacks and drinks with you. ? Develop a support system ? Having a support system is helpful when losing weight. This is why many commercial groups are successful. Family support is also essential; if your family does not support your efforts to lose weight, this can slow your progress or even keep you from losing weight. ? Positive thinking ? People often have conversations with themselves in their head; these conversations can be positive or negative. If you eat a piece of cake that was not planned, you may respond by thinking, Oh, you stupid idiot, you've blown your diet! and as a result, you may eat more cake. A positive thought for the same event could be, Well, I ate cake when it was not on my plan. Now I should do something to get back on track. A positive approach is much more likely to be successful than a negative one. ? Reduce stress ? Although stress is a part of everyday life, it can trigger uncontrolled eating in some people. It is important to find a way to get through these difficult times without eating or by eating low-calorie food, like raw vegetables. It may be helpful to imagine a relaxing place that allows you to temporarily escape from stress. With deep breaths and closed eyes, you can imagine this relaxing place for a few minutes. ? Self-help programs ? Self-help programs like Weight Watchers?, Overeaters Anonymous?, and Take Off Pounds Sensibly (TOPS)? work for some people. As with all weight loss programs, you are most likely to be successful with these plans if you make long-term changes in how you eat. CHOOSING A DIET ? A calorie is a unit of energy found in food. Your body needs calories to function. The goal of any diet is to burn up more calories than you eat. How quickly you lose weight depends upon several factors, such as your age, gender, and starting weight. ? Older people have a slower metabolism than young people, so they lose weight more slowly. ? Men lose more weight than women of similar height and weight when dieting because they use more energy. ? People who are extremely overweight lose weight more quickly than those who are only mildly overweight. How many calories do I need? ? You can estimate the number of calories you need per day based upon your current (or target) weight, gender, and activity level for women and for men. In general, it is best to choose foods that contain enough protein, carbohydrates, essential fatty acids, and vitamins. Try not to drink alcohol or drinks with added sugar, and most sweets (candy, cakes, cookies), since they rarely contain important nutrients. Portion-controlled diets ? One simple way to diet is to buy packaged foods, like frozen low-calorie meals or meal-replacement canned drinks. A typical meal plan for 1000 to 1500 calories per day may include: ? A meal-replacement drink or breakfast bar for breakfast ? A meal-replacement drink or a frozen low-calorie (250 to 350 calories) meal for lunch ? A frozen low-calorie meal or other prepackaged, calorie- controlled meal, along with extra vegetables for dinner Low-fat diet ? To reduce the amount of fat in your diet, you can: ? Eat low-fat foods. Low-fat foods are those that contain less than 30 percent of calories from fat. Fat is listed on the food facts label ? Count fat grams. For a 1500 calorie diet, this would mean about 45 g or fewer of fat per day. Low-carbohydrate diet ? Low- and xvgu-ygj-juvlqdzkmlif diets (eg, Atkins diet, TripAdvisor diet) have become popular ways to lose weight quickly. ? With a arkr-rsc-wfsgbgrammyd diet, you eat between 0 and 60 grams of carbohydrates per day (a standard diet contains 200 to 300 grams of carbohydrates) ? With a low-carbohydrate diet, you eat between 60 and 130 grams of carbohydrates per day ? Carbohydrates are found in fruits, vegetables, and grains (including breads, rice, pasta, and cereal), alcoholic beverages, and in dairy products. Meat and fish do not contain carbohydrates. ? Side effects of ywgc-fzf-anubrvjelygo diets can include constipation, headache, bad breath, muscle cramps, diarrhea, and weakness. Mediterranean diet ? The term Mediterranean diet refers to a way of eating that is common in olive-growing regions around the [place]. Although there is some variation in Mediterranean diets, there are some similarities. Most Mediterranean diets include: ? A high level of monounsaturated fats (from olive or canola oil, walnuts, pecans, almonds) and a low level of saturated fats (from butter) ? A high amount of vegetables, fruits, legumes, and grains (7 to 10 servings of fruits and vegetables per day) ? A moderate amount of milk and dairy products, mostly in the form of cheese. Use low-fat dairy products (skim milk, fat-free yogurt, low- fat cheese). ? A relatively low amount of red meat and meat products. Substitute fish or poultry for red meat. ? For those who drink alcohol, a modest amount (mainly as red wine) may help to protect against cardiovascular disease. A modest amount is up to one (4 ounce) glass per day for women and up to two glasses per day for men. Which diet is best? ? No one diet is best for weight loss. Any diet will help you to lose weight if you stick with the diet. Therefore, it is important to choose a diet that includes foods you like. Fad diets ? Fad diets often promise quick weight loss (more than 1 to 2 pounds per week) and may claim that you do not need to exercise or give up favorite foods. Some fad diets cost a lot of money, because you have to pay for seminars or pills. Fad diets generally lack any scientific evidence that they are safe and effective, but instead rely on before and after photos or testimonials. Diets that sound too good to be true usually are. These plans are a waste of time and money and are not recommended. A doctor, nurse, or key carrier can help you find a safe and effective way to lose weight and keep it off. Adapted from [employer] Referring Provider: SELF [200] Allergies As of Date: 10/17/2017 (No Known Allergies) Date Reviewed: 10/17/2017 Reviewed by: Carlyn [employer] Refinisher - Fully Assessed Reason for Visit: Recheck [92] Visit Diagnosis:Obesity, Class III, BMI 40-49.9 (morbid obesity) (FORMERLY [facility]) [E66.01] Order(s):Phentermine HCl (ADIPEX-P) 37.5 mg tabletTake 1 tablet by mouth once daily for 30 days. Body mass index is 42.61 kg/m?.Disp: 30 tabletRfl: 0 Prescriptions as of 10/17/2017 Sig: PHENTERMINE 37.5 MG TABLET Take 1 tablet by mouth once d* CHOLECALCIFEROL (VITAMIN D3) * Take 1 capsule by mouth once * IBUPROFEN 600 MG TABLET Take 1 tablet by mouth every * PEPCID ORAL Take by mouth. Problem List As Of Date 10/17/2017 Noted Resolved Pilonidal cyst without mention of abscess [L05.*INVALID FOR*01/01/2012 Moderate dysplasia of cervix [N87.1] INVALID FOR*11/26/2014 Condyloma acuminatum [A63.0] INVALID FOR*01/01/2012 Supervision of normal first [Z34.00] INVALID FOR*01/01/2012 Candidiasis of vulva and vagina [B37.3] INVALID FOR*01/01/2012 with uncertain dates [Z34.90] INVALID FOR*02/16/2012 More... Obesity in [O99.210] INVALID FOR*01/02/2017 More... Tobacco use in [O99.330] INVALID FOR*01/06/2013 More... Supervision of other normal [Z34.80] INVALID FOR*01/06/2013 Uterine size date discrepancy [O26.849] INVALID FOR*01/06/2013 GBS (group B streptococcus) UTI complicating pr*INVALID FOR*11/26/2014 More... Encounter for supervision of normal first pregn*INVALID FOR*05/10/2016 Encounter for supervision of normal i*INVALID FOR*01/02/2017 Current with history of pre-term labo*INVALID FOR*01/02/2017 More... polycystic kidney disease affecting antep*INVALID FOR*01/02/2017 More... Positive GBS test [B95.1] INVALID FOR*01/02/2017 [Z34.90] INVALID FOR*01/02/2017 Other instructions from your clinician: Jillian Mock TRYING TO LOSE WEIGHT? Your Body mass index is 40.03 kg/m?. (Target BMI: 19-25) A person with a BMI between 25 and 29.9 is considered overweight A person with a BMI of 30 or greater is considered to be obese SETTING A WEIGHT LOSS GOAL: Lose 10% of body weight over six months, about 1-2 lbs per week LIFESTYLE CHANGES ? The goals of lifestyle changes are to help you change your eating habits, become more active, and be more aware of how much you eat and exercise, helping you to make healthier choices. This can be broken down into three steps: 1. Triggers to eat ? Determining what triggers you to eat involves figuring out what foods you eat and where and when you eat. To figure out what triggers you to eat, keep a record for a few days of everything you eat, the places where you eat, how often you eat, and the emotions you were feeling when you ate. For some people, the trigger is related to a certain time of day or night. For others, the trigger is related to a certain place, like sitting at a desk working. 2. Eating ? You can change your eating habits by breaking the chain of events between the trigger for eating and eating itself. There are many ways to do this. For instance, you can: ? Limit where you eat to a few places (eg, dining room) ? Restrict the number of utensils (eg, only a fork) used for eating ? Drink a sip of water between each bite ? Chew your food a certain number of times ? Get up and stop eating every few minutes 3. What happens after you eat ? ? Rewarding yourself for good eating behaviors can help you to develop better habits. This is not a reward for weight loss; instead, it is a reward for changing unhealthy behaviors. ? Do not use food as a reward. Some people find money, clothing, or personal care (eg, a hair cut, manicure, or massage) to be effective rewards. Treat yourself immediately after making better eating choices to reinforce the value of the good behavior. ? You need to have clear behavior goals, and you must have a time frame for reaching your goals. Reward small changes along the way to your final goal. Other factors that contribute to successful weight loss ? ? Establish a jamey system ? Having a friend or family member available to provide support and reinforce good behavior is very helpful. The support person needs to understand your goals. ? Learn to be strong ? Learning to be strong when tempted by food is an important part of losing weight. As an example, you will need to learn how to say no and continue to say no when urged to eat at parties and social gatherings. Develop strategies for events before you go, such as eating before you go or taking low-calorie snacks and drinks with you. ? Develop a support system ? Having a support system is helpful when losing weight. This is why many commercial groups are successful. Family support is also essential; if your family does not support your efforts to lose weight, this can slow your progress or even keep you from losing weight. ? Positive thinking ? People often have conversations with themselves in their head; these conversations can be positive or negative. If you eat a piece of cake that was not planned, you may respond by thinking, Oh, you stupid idiot, you've blown your diet! and as a result, you may eat more cake. A positive thought for the same event could be, Well, I ate cake when it was not on my plan. Now I should do something to get back on track. A positive approach is much more likely to be successful than a negative one. ? Reduce stress ? Although stress is a part of everyday life, it can trigger uncontrolled eating in some people. It is important to find a way to get through these difficult times without eating or by eating low-calorie food, like raw vegetables. It may be helpful to imagine a relaxing place that allows you to temporarily escape from stress. With deep breaths and closed eyes, you can imagine this relaxing place for a few minutes. ? Self-help programs ? Self-help programs like Weight Watchers?, Overeaters Anonymous?, and Take Off Pounds Sensibly (TOPS)? work for some people. As with all weight loss programs, you are most likely to be successful with these plans if you make long-term changes in how you eat. CHOOSING A DIET ? A calorie is a unit of energy found in food. Your body needs calories to function. The goal of any diet is to burn up more calories than you eat. How quickly you lose weight depends upon several factors, such as your age, gender, and starting weight. ? Older people have a slower metabolism than young people, so they lose weight more slowly. ? Men lose more weight than women of similar height and weight when dieting because they use more energy. ? People who are extremely overweight lose weight more quickly than those who are only mildly overweight. How many calories do I need? ? You can estimate the number of calories you need per day based upon your current (or target) weight, gender, and activity level for women and for men. In general, it is best to choose foods that contain enough protein, carbohydrates, essential fatty acids, and vitamins. Try not to drink alcohol or drinks with added sugar, and most sweets (candy, cakes, cookies), since they rarely contain important nutrients. Portion-controlled diets ? One simple way to diet is to buy packaged foods, like frozen low-calorie meals or meal-replacement canned drinks. A typical meal plan for 1000 to 1500 calories per day may include: ? A meal-replacement drink or breakfast bar for breakfast ? A meal-replacement drink or a frozen low-calorie (250 to 350 calories) meal for lunch ? A frozen low-calorie meal or other prepackaged, calorie- controlled meal, along with extra vegetables for dinner Low-fat diet ? To reduce the amount of fat in your diet, you can: ? Eat low-fat foods. Low-fat foods are those that contain less than 30 percent of calories from fat. Fat is listed on the food facts label ? Count fat grams. For a 1500 calorie diet, this would mean about 45 g or fewer of fat per day. Low-carbohydrate diet ? Low- and pmgx-kbt-jbfslenahibt diets (eg, Atkins diet, TripAdvisor diet) have become popular ways to lose weight quickly. ? With a qmtm-ksa-geczhssrjllt diet, you eat between 0 and 60 grams of carbohydrates per day (a standard diet contains 200 to 300 grams of carbohydrates) ? With a low-carbohydrate diet, you eat between 60 and 130 grams of carbohydrates per day ? Carbohydrates are found in fruits, vegetables, and grains (including breads, rice, pasta, and cereal), alcoholic beverages, and in dairy products. Meat and fish do not contain carbohydrates. ? Side effects of tppz-drt-cvbgqqgdwabk diets can include constipation, headache, bad breath, muscle cramps, diarrhea, and weakness. Mediterranean diet ? The term Mediterranean diet refers to a way of eating that is common in olive-growing regions around the [place]. Although there is some variation in Mediterranean diets, there are some similarities. Most Mediterranean diets include: ? A high level of monounsaturated fats (from olive or canola oil, walnuts, pecans, almonds) and a low level of saturated fats (from butter) ? A high amount of vegetables, fruits, legumes, and grains (7 to 10 servings of fruits and vegetables per day) ? A moderate amount of milk and dairy products, mostly in the form of cheese. Use low-fat dairy products (skim milk, fat-free yogurt, low-fat cheese). ? A relatively low amount of red meat and meat products. Substitute fish or poultry for red meat. ? For those who drink alcohol, a modest amount (mainly as red wine) may help to protect against cardiovascular disease. A modest amount is up to one (4 ounce) glass per day for women and up to two glasses per day for men. Which diet is best? ? No one diet is best for weight loss. Any diet will help you to lose weight if you stick with the diet. Therefore, it is important to choose a diet that includes foods you like. Fad diets ? Fad diets often promise quick weight loss (more than 1 to 2 pounds per week) and may claim that you do not need to exercise or give up favorite foods. Some fad diets cost a lot of money, because you have to pay for seminars or pills. Fad diets generally lack any scientific evidence that they are safe and effective, but instead rely on before and after photos or testimonials. Diets that sound too good to be true usually are. These plans are a waste of time and money and are not recommended. A doctor, nurse, or key carrier can help you find a safe and effective way to lose weight and keep it off. Adapted from [facility] Prescriptions ordered this encounter Disp Refills Start End PHENTERMINE 37.5 MG TABLET 30 t* 0 10/17/2017 11/16/2017 Class: Print RX Route: ORAL Sig: Take 1 tablet by mouth once daily for 30 days. Body mass index is 42.61 kg/m?. Medications Discontinued During This Encounter Phentermine HCl (ADIPEX-P) 37.5 mg t* 30 t* 0 09/19/2017 10/17/2017 Class: Print RX Route: ORAL Sig: Take 1 tablet by mouth once daily for 30 days. Body mass index is 42.61 kg/m?. Disc: Reason for discontinue is not on file. Encounter Status:Closed by ELIZABETH DICKSON CNP on 10/17/17 PROGRESS Observed: 09/19/2017 Status: COMPLETED Source: [place] 2:[address] [facility] [place] REPOSITORY [facility] ID: [id number] Author: Elizabeth Metzger) Yessi Service: (none) Author Type: Nurse Practitioner Type: Progress Notes Filed: 09/19/2017 2:54 PM Note Text: CC: Ezekiel Pillai is a 32 year old female who presents for weight loss medication follow up. HPI Currently taking Adipex. Starting Month 2 of 3. Denies: abdominal pain, nausea, vomiting, diarrhea, fevers, constipation, headache, change in urination, lightheadedness, weakness, numbness or tingling to arms or legs, edema, palpitations, sleep disturbances, impairment of concentration/attention, difficulty with memory, speech or language problems (particularly word-finding difficulties). Reports: dry mouth If DM any hypo/hyperglycemiaNot applicable DIET Serving of fruits:2 Servings of vegetables:2 Servings of protein:3-5 Fluid intake:Water:>10 glasses per day Do you Skip meals:YES Which meals do you tend to skip? Lunch Eating away from home:YES Fast-food/fast-casual and Sit down restaurantOnce weekly or less often Nutrition consult placed No Exercise routine: YES more active with kids Weight/BMI Last 1 Encounter Wt Readings: Date: Wt: 09/19/2017 115.7 kg (255 lb) BMI 41.16 kg/(m2) Last visit Wt: 119.7 kg (264 lb) BMI: 42.61 kg/(m2) Weight change since last visit: How much: 9lbs, How lon month Percent of Weight Loss: 3.4% ROS as above, otherwise non-contributory. Reviewed PMHx, PSHx, social Hx, medications and allergies. PHYSICAL EXAM BP 122/74 (BP Site: Left Arm, BP Position: Sitting, BP Cuff Size: Regular Adult) Pulse 84 Resp 18 Wt 115.7 kg (255 lb) LMP 09/01/2017 BMI 41.16 kg/m? General Appearance: well appearing, in no acute distress, alert, obese Pysch: mood and affect broad and appropriate Lungs: Lungs clear to auscultation. No wheezing, rhonchi, rales Heart: RRR without murmur, gallop, or rubs. No ectopy Abdomen: Abdomen soft, non-tender. Bowel sounds normal. No masses, organomegaly ASSESSMENT/PLAN: 1. Obesity, Class III, BMI 40-49.9 (morbid obesity) (HCC) - ICD9: 278.01, ICD10: E66.01 - PHENTERMINE 37.5 MG TABLET - Continue diet consisting of counting calories, counting fat grams and counting carbohydrates. - Reduce sugary drinks of artificial juices and sodas and replace with water and low calorie Crystal Light. - Healthy Snack alternatives have been discussed and will attempt more fruits and vegetables. - encouraged 3 meals a day - Beginexercise or meaningful activity for 20 minutes at lest 3 times a day OARRS website checked and validated. All prescriptions have been APPROPRIATELY filled. No suspicious activity was identified.- 09/19/2017 by Elizabeth Dickson APRN.VERO - reviewed SE, medication expectations, required weight loss of 5%, required monthly monitoring and medication duration of use (3 months on 6 months off) Elizabeth Dickson APRN.VERO CNOV Observed: 09/19/2017 Status: COMPLETED Source: [place] 2:20 PM [facility] REPOSITORY Office Visit (FAMPWS) SHUN PILLAIHEL Linda ([id number]) 1985 F Date Time Provider Department 09/19/17 2:20 PM [facility] During your visit today, we recorded the following information about you: Pulse Respiration Blood pressure Weight 84/minute 18/minute 122/74 115.7 kg Last Period 09/01/17 Elizabeth Dickson APRN.CNP 09/19/2017 2:54 PM Signed CC: Ezekiel Pillai is a 32 year old female who presents for weight loss medication follow up. HPI Currently taking Adipex. Starting Month 2 of 3. Denies: abdominal pain, nausea, vomiting, diarrhea, fevers, constipation, headache, change in urination, lightheadedness, weakness, numbness or tingling to arms or legs, edema, palpitations, sleep disturbances, impairment of concentration/attention, difficulty with memory, speech or language problems (particularly word-finding difficulties). Reports: dry mouth If DM any hypo/hyperglycemiaNot applicable DIET Serving of fruits:2 Servings of vegetables:2 Servings of protein:3-5 Fluid intake:Water:>10 glasses per day Do you Skip meals:YES Which meals do you tend to skip? Lunch Eating away from home:YES Fast-food/fast-casual and Sit down restaurantOnce weekly or less often Nutrition consult placed No Exercise routine: YES more active with kids Weight/BMI Last 1 Encounter Wt Readings: Date: Wt: 09/19/2017 115.7 kg (255 lb) BMI 41.16 kg/(m2) Last visit Wt: 119.7 kg (264 lb) BMI: 42.61 kg/(m2) Weight change since last visit: How much: 9lbs, How lon month Percent of Weight Loss: 3.4% ROS as above, otherwise non-contributory. Reviewed PMHx, PSHx, social Hx, medications and allergies. PHYSICAL EXAM BP 122/74 (BP Site: Left Arm, BP Position: Sitting, BP Cuff Size: Regular Adult) Pulse 84 Resp 18 Wt 115.7 kg (255 lb) LMP 09/01/2017 BMI 41.16 kg/m? General Appearance: well appearing, in no acute distress, alert, obese Pysch: mood and affect broad and appropriate Lungs: Lungs clear to auscultation. No wheezing, rhonchi, rales Heart: RRR without murmur, gallop, or rubs. No ectopy Abdomen: Abdomen soft, non-tender. Bowel sounds normal. No masses, organomegaly ASSESSMENT/PLAN: 1. Obesity, Class III, BMI 40-49.9 (morbid obesity) (HCC) - ICD9: 278.01, ICD10: E66.01 - PHENTERMINE 37.5 MG TABLET - Continue diet consisting of counting calories, counting fat grams and counting carbohydrates. - Reduce sugary drinks of artificial juices and sodas and replace with water and low calorie Crystal Light. - Healthy Snack alternatives have been discussed and will attempt more fruits and vegetables. - encouraged 3 meals a day - Beginexercise or meaningful activity for 20 minutes at lest 3 times a day OARRS website checked and validated. All prescriptions have been APPROPRIATELY filled. No suspicious activity was identified.- 09/19/2017 by Elizabeth Dickson APRN.SKI LIFT ATTENDANT - reviewed SE, medication expectations, required weight loss of 5%, required monthly monitoring and medication duration of use (3 months on 6 months off) Elizabeth Dickson APRN.SKI LIFT ATTENDANT Referring Provider: SELF [200] Allergies As of Date: 09/19/2017 (No Known Allergies) Date Reviewed: 09/19/2017 Reviewed by: Ghada Shaw LPN - Fully Assessed Reason for Visit: Recheck [92] Visit Diagnosis:Obesity, Class III, BMI 40-49.9 (morbid obesity) (FORMERLY [facility]) [E66.01] Order(s):Phentermine HCl (ADIPEX-P) 37.5 mg tabletTake 1 tablet by mouth once daily for 30 days. Body mass index is 42.61 kg/m?.Disp: 30 tabletRfl: 0 Prescriptions as of 09/19/2017 Sig: PHENTERMINE 37.5 MG TABLET Take 1 tablet by mouth once d* CHOLECALCIFEROL (VITAMIN D3) * Take 1 capsule by mouth once * IBUPROFEN 600 MG TABLET Take 1 tablet by mouth every * PEPCID ORAL Take by mouth. Problem List As Of Date 09/19/2017 Noted Resolved Pilonidal cyst without mention of abscess [L05.*INVALID FOR*01/01/2012 Moderate dysplasia of cervix [N87.1] INVALID FOR*11/26/2014 Condyloma acuminatum [A63.0] INVALID FOR*01/01/2012 Supervision of normal first [Z34.00] INVALID FOR*01/01/2012 Candidiasis of vulva and vagina [B37.3] INVALID FOR*01/01/2012 with uncertain dates [Z34.90] INVALID FOR*02/16/2012 More... Obesity in [O99.210] INVALID FOR*01/02/2017 More... Tobacco use in [O99.330] INVALID FOR*01/06/2013 More... Supervision of other normal [Z34.80] INVALID FOR*01/06/2013 Uterine size date discrepancy [O26.849] INVALID FOR*01/06/2013 GBS (group B streptococcus) UTI complicating pr*INVALID FOR*11/26/2014 More... Encounter for supervision of normal first pregn*INVALID FOR*05/10/2016 Encounter for supervision of normal i*INVALID FOR*01/02/2017 Current with history of pre-term labo*INVALID FOR*01/02/2017 More... polycystic kidney disease affecting antep*INVALID FOR*01/02/2017 More... Positive GBS test [B95.1] INVALID FOR*01/02/2017 [Z34.90] INVALID FOR*01/02/2017 Prescriptions ordered this encounter Disp Refills Start End PHENTERMINE 37.5 MG TABLET 30 t* 0 09/19/2017 10/19/2017 Class: Print RX Route: ORAL Sig: Take 1 tablet by mouth once daily for 30 days. Body mass index is 42.61 kg/m?. Medications Discontinued During This Encounter Phentermine HCl (ADIPEX-P) 37.5 mg t* 30 t* 0 08/21/2017 09/19/2017 Class: Print RX Route: ORAL Sig: Take 1 tablet by mouth once daily for 30 days. Body mass index is 42.61 kg/m?. Disc: Reason for discontinue is not on file. Encounter Status:Closed by ELIZABETH DICKSON CNP on 09/19/17 PROGRESS Observed: 08/21/2017 Status: COMPLETED Source: [place] 3:[address] [facility] [place] REPOSITORY [facility] ID: [id number] Author: Elizabeth Smyth (Vero) Yessi Service: (none) Author Type: Nurse Practitioner Type: Progress Notes Filed: 08/21/2017 3:41 PM Note Text: CC: Ezekiel Pillai is a 32 year old female who presents for medication follow up. Stopped Prozac r/t daily headaches. Interested in addressing her weight today HPI Currently taking nothing. Previous on Adipex with good results and no SE. Starting Month 1 of 3 If DM any hypo/hyperglycemiaNot applicable DIET Serving of fruits:3-5 Servings of vegetables:3-5 Servings of protein:3-5 Exercise routine: NO very active with work and children Weight/BMI Last 1 Encounter Wt Readings: Date: Wt: 08/21/2017 119.7 kg (264 lb) BMI 42.61 kg/(m2) Last visit Wt: 119.7 kg (264 lb) BMI: 42.61 kg/(m2) ROS as above, otherwise non-contributory. Reviewed PMHx, PSHx, social Hx, medications and allergies. PHYSICAL EXAM BP 118/70 Pulse 80 Resp 16 Wt 119.7 kg (264 lb) BMI 42.61 kg/m? General Appearance: well appearing, in no acute distress, alert, obese Pysch: mood and affect broad and appropriate Lungs: Lungs clear to auscultation. No wheezing, rhonchi, rales Heart: RRR without murmur, gallop, or rubs. No ectopy Abdomen: Abdomen soft, non-tender. Bowel sounds normal. No masses, organomegaly ASSESSMENT/PLAN: 1. Obesity, Class III, BMI 40-49.9 (morbid obesity) (HCC) - ICD9: 278.01, ICD10: E66.01 - PHENTERMINE 37.5 MG TABLET - Begin diet consisting of counting calories, counting fat grams and counting carbohydrates. - Reduce sugary drinks of artificial juices and sodas and replace with water and low calorie Crystal Light. - Healthy Snack alternatives have been discussed and will attempt more fruits and vegetables. - encouraged 3 meals a day - Beginexercise or meaningful activity for 20 minutes at lest 3 times a day [email or web address] website checked and validated. All prescriptions have been APPROPRIATELY filled. No suspicious activity was identified.- 08/21/2017 by Elizabeth Dickson APRN.VERO - reviewed SE, medication expectations, required weight loss of 5%, required monthly monitoring and medication duration of use (3 months on 6 months off) Elizabeth Dickson APRN.CNP CNOV Observed: 08/21/2017 Status: COMPLETED Source: [place] 2:40 PM [facility] REPOSITORY Office Visit (FAMPWS) EZEKIEL PILLAI ([id number]) 1985 F Date Time Provider Department 08/21/17 2:40 PM ELIZABETH DICKSON (VERO) [facility] During your visit today, we recorded the following information about you: Pulse Respiration Blood pressure Weight 80/minute 16/minute 118/70 119.7 kg Elizabeth Dickson APRN.CNP 08/21/2017 3:15 PM Signed TRYING TO LOSE WEIGHT? Your Body mass index is 42.61 kg/m?. (Target BMI: 19-25) A person with a BMI between 25 and 29.9 is considered overweight A person with a BMI of 30 or greater is considered to be obese SETTING A WEIGHT LOSS GOAL: Lose 10% of body weight over six months, about 1-2 lbs per week LIFESTYLE CHANGES ? The goals of lifestyle changes are to help you change your eating habits, become more active, and be more aware of how much you eat and exercise, helping you to make healthier choices. This can be broken down into three steps: 1. Triggers to eat ? Determining what triggers you to eat involves figuring out what foods you eat and where and when you eat. To figure out what triggers you to eat, keep a record for a few days of everything you eat, the places where you eat, how often you eat, and the emotions you were feeling when you ate. For some people, the trigger is related to a certain time of day or night. For others, the trigger is related to a certain place, like sitting at a desk working. 2. Eating ? You can change your eating habits by breaking the chain of events between the trigger for eating and eating itself. There are many ways to do this. For instance, you can: ? Limit where you eat to a few places (eg, dining room) ? Restrict the number of utensils (eg, only a fork) used for eating ? Drink a sip of water between each bite ? Chew your food a certain number of times ? Get up and stop eating every few minutes 3. What happens after you eat ? ? Rewarding yourself for good eating behaviors can help you to develop better habits. This is not a reward for weight loss; instead, it is a reward for changing unhealthy behaviors. ? Do not use food as a reward. Some people find money, clothing, or personal care (eg, a hair cut, manicure, or massage) to be effective rewards. Treat yourself immediately after making better eating choices to reinforce the value of the good behavior. ? You need to have clear behavior goals, and you must have a time frame for reaching your goals. Reward small changes along the way to your final goal. Other factors that contribute to successful weight loss ? ? Establish a jamey system ? Having a friend or family member available to provide support and reinforce good behavior is very helpful. The support person needs to understand your goals. ? Learn to be strong ? Learning to be strong when tempted by food is an important part of losing weight. As an example, you will need to learn how to say no and continue to say no when urged to eat at parties and social gatherings. Develop strategies for events before you go, such as eating before you go or taking low-calorie snacks and drinks with you. ? Develop a support system ? Having a support system is helpful when losing weight. This is why many commercial groups are successful. Family support is also essential; if your family does not support your efforts to lose weight, this can slow your progress or even keep you from losing weight. ? Positive thinking ? People often have conversations with themselves in their head; these conversations can be positive or negative. If you eat a piece of cake that was not planned, you may respond by thinking, Oh, you stupid idiot, you've blown your diet! and as a result, you may eat more cake. A positive thought for the same event could be, Well, I ate cake when it was not on my plan. Now I should do something to get back on track. A positive approach is much more likely to be successful than a negative one. ? Reduce stress ? Although stress is a part of everyday life, it can trigger uncontrolled eating in some people. It is important to find a way to get through these difficult times without eating or by eating low-calorie food, like raw vegetables. It may be helpful to imagine a relaxing place that allows you to temporarily escape from stress. With deep breaths and closed eyes, you can imagine this relaxing place for a few minutes. ? Self-help programs ? Self-help programs like Weight Watchers?, Overeaters Anonymous?, and Take Off Pounds Sensibly (TOPS)? work for some people. As with all weight loss programs, you are most likely to be successful with these plans if you make long-term changes in how you eat. CHOOSING A DIET ? A calorie is a unit of energy found in food. Your body needs calories to function. The goal of any diet is to burn up more calories than you eat. How quickly you lose weight depends upon several factors, such as your age, gender, and starting weight. ? Older people have a slower metabolism than young people, so they lose weight more slowly. ? Men lose more weight than women of similar height and weight when dieting because they use more energy. ? People who are extremely overweight lose weight more quickly than those who are only mildly overweight. How many calories do I need? ? You can estimate the number of calories you need per day based upon your current (or target) weight, gender, and activity level for women and for men. In general, it is best to choose foods that contain enough protein, carbohydrates, essential fatty acids, and vitamins. Try not to drink alcohol or drinks with added sugar, and most sweets (candy, cakes, cookies), since they rarely contain important nutrients. Portion-controlled diets ? One simple way to diet is to buy packaged foods, like frozen low-calorie meals or meal-replacement canned drinks. A typical meal plan for 1000 to 1500 calories per day may include: ? A meal-replacement drink or breakfast bar for breakfast ? A meal-replacement drink or a frozen low-calorie (250 to 350 calories) meal for lunch ? A frozen low-calorie meal or other prepackaged, calorie- controlled meal, along with extra vegetables for dinner Low-fat diet ? To reduce the amount of fat in your diet, you can: ? Eat low-fat foods. Low-fat foods are those that contain less than 30 percent of calories from fat. Fat is listed on the food facts label ? Count fat grams. For a 1500 calorie diet, this would mean about 45 g or fewer of fat per day. Low-carbohydrate diet ? Low- and gkka-bmd-xerzcjekuabk diets (eg, Atkins diet, TripAdvisor diet) have become popular ways to lose weight quickly. ? With a zanh-azy-bdalpjqeshed diet, you eat between 0 and 60 grams of carbohydrates per day (a standard diet contains 200 to 300 grams of carbohydrates) ? With a low-carbohydrate diet, you eat between 60 and 130 grams of carbohydrates per day ? Carbohydrates are found in fruits, vegetables, and grains (including breads, rice, pasta, and cereal), alcoholic beverages, and in dairy products. Meat and fish do not contain carbohydrates. ? Side effects of gfnj-ftv-dcuplcoclauu diets can include constipation, headache, bad breath, muscle cramps, diarrhea, and weakness. Mediterranean diet ? The term Mediterranean diet refers to a way of eating that is common in olive-growing regions around the [place]. Although there is some variation in Mediterranean diets, there are some similarities. Most Mediterranean diets include: ? A high level of monounsaturated fats (from olive or canola oil, walnuts, pecans, almonds) and a low level of saturated fats (from butter) ? A high amount of vegetables, fruits, legumes, and grains (7 to 10 servings of fruits and vegetables per day) ? A moderate amount of milk and dairy products, mostly in the form of cheese. Use low-fat dairy products (skim milk, fat-free yogurt, low- fat cheese). ? A relatively low amount of red meat and meat products. Substitute fish or poultry for red meat. ? For those who drink alcohol, a modest amount (mainly as red wine) may help to protect against cardiovascular disease. A modest amount is up to one (4 ounce) glass per day for women and up to two glasses per day for men. Which diet is best? ? No one diet is best for weight loss. Any diet will help you to lose weight if you stick with the diet. Therefore, it is important to choose a diet that includes foods you like. Fad diets ? Fad diets often promise quick weight loss (more than 1 to 2 pounds per week) and may claim that you do not need to exercise or give up favorite foods. Some fad diets cost a lot of money, because you have to pay for seminars or pills. Fad diets generally lack any scientific evidence that they are safe and effective, but instead rely on before and after photos or testimonials. Diets that sound too good to be true usually are. These plans are a waste of time and money and are not recommended. A doctor, nurse, or key carrier can help you find a safe and effective way to lose weight and keep it off. Adapted from [facility] ([facility] Elizabeth Dickson APRN.[facility] 08/21/2017 3:41 PM Signed CC: Ezekiel Pillai is a 32 year old female who presents for medication follow up. Stopped Prozac r/t daily headaches. Interested in addressing her weight today HPI Currently taking nothing. Previous on Adipex with good results and no SE. Starting Month 1 of 3 If DM any hypo/hyperglycemiaNot applicable DIET Serving of fruits:3-5 Servings of vegetables:3-5 Servings of protein:3-5 Exercise routine: NO very active with work and children Weight/BMI Last 1 Encounter Wt Readings: Date: Wt: 08/21/2017 119.7 kg (264 lb) BMI 42.61 kg/(m2) Last visit Wt: 119.7 kg (264 lb) BMI: 42.61 kg/(m2) ROS as above, otherwise non-contributory. Reviewed PMHx, PSHx, social Hx, medications and allergies. PHYSICAL EXAM BP 118/70 Pulse 80 Resp 16 Wt 119.7 kg (264 lb) BMI 42.61 kg/m? General Appearance: well appearing, in no acute distress, alert, obese Pysch: mood and affect broad and appropriate Lungs: Lungs clear to auscultation. No wheezing, rhonchi, rales Heart: RRR without murmur, gallop, or rubs. No ectopy Abdomen: Abdomen soft, non-tender. Bowel sounds normal. No masses, organomegaly ASSESSMENT/PLAN: 1. Obesity, Class III, BMI 40-49.9 (morbid obesity) ([facility]) - ICD9: 278.01, ICD10: E66.01 - PHENTERMINE 37.5 MG TABLET - Begin diet consisting of counting calories, counting fat grams and counting carbohydrates. - Reduce sugary drinks of artificial juices and sodas and replace with water and low calorie Crystal Light. - Healthy Snack alternatives have been discussed and will attempt more fruits and vegetables. - encouraged 3 meals a day - Beginexercise or meaningful activity for 20 minutes at lest 3 times a day [email or web address] website checked and validated. All prescriptions have been APPROPRIATELY filled. No suspicious activity was identified.- 08/21/2017 by Elizabeth Dickson APRN.[employer] - reviewed SE, medication expectations, required weight loss of 5%, required monthly monitoring and medication duration of use (3 months on 6 months off) Elizabeth Dickson APRN.[employer] Referring Provider: SELF [[id number]] Allergies As of Date: 08/21/2017 (No Known Allergies) Date Reviewed: 08/21/2017 Reviewed by: Nikolas Tao LPN - Fully Assessed Reason for Visit: Recheck [92] Cmt: 3 week follow up Primary Visit Diagnosis:Obesity, Class III, BMI 40-49.9 (morbid obesity) ([facility]) [E66.01] Order(s):Phentermine HCl (ADIPEX-P) 37.5 mg tabletTake 1 tablet by mouth once daily for 30 days. Body mass index is 42.61 kg/m?.Disp: 30 tabletRfl: 0 Prescriptions as of 08/21/2017 Sig: CHOLECALCIFEROL (VITAMIN D3) * Take 1 capsule by mouth once * IBUPROFEN 600 MG TABLET Take 1 tablet by mouth every * PEPCID ORAL Take by mouth. PHENTERMINE 37.5 MG TABLET Take 1 tablet by mouth once d* Problem List As Of Date 08/21/2017 Noted Resolved Pilonidal cyst without mention of abscess [L05.*INVALID FOR*01/01/2012 Moderate dysplasia of cervix [N87.1] INVALID FOR*11/26/2014 Condyloma acuminatum [A63.0] INVALID FOR*01/01/2012 Supervision of normal first [Z34.00] INVALID FOR*01/01/2012 Candidiasis of vulva and vagina [B37.3] INVALID FOR*01/01/2012 with uncertain dates [Z34.90] INVALID FOR*02/16/2012 More... Obesity in [O99.210] INVALID FOR*01/02/2017 More... Tobacco use in [O99.330] INVALID FOR*01/06/2013 More... Supervision of other normal [Z34.80] INVALID FOR*01/06/2013 Uterine size date discrepancy [O26.849] INVALID FOR*01/06/2013 GBS (group B streptococcus) UTI complicating pr*INVALID FOR*11/26/2014 More... Encounter for supervision of normal first pregn*INVALID FOR*05/10/2016 Encounter for supervision of normal i*INVALID FOR*01/02/2017 Current with history of pre-term labo*INVALID FOR*01/02/2017 More... polycystic kidney disease affecting antep*INVALID FOR*01/02/2017 More... Positive GBS test [B95.1] INVALID FOR*01/02/2017 [Z34.90] INVALID FOR*01/02/2017 Other instructions from your clinician: TRYING TO LOSE WEIGHT? Your Body mass index is 42.61 kg/m?. (Target BMI: 19-25) A person with a BMI between 25 and 29.9 is considered overweight A person with a BMI of 30 or greater is considered to be obese SETTING A WEIGHT LOSS GOAL: Lose 10% of body weight over six months, about 1-2 lbs per week LIFESTYLE CHANGES ? The goals of lifestyle changes are to help you change your eating habits, become more active, and be more aware of how much you eat and exercise, helping you to make healthier choices. This can be broken down into three steps: 1. Triggers to eat ? Determining what triggers you to eat involves figuring out what foods you eat and where and when you eat. To figure out what triggers you to eat, keep a record for a few days of everything you eat, the places where you eat, how often you eat, and the emotions you were feeling when you ate. For some people, the trigger is related to a certain time of day or night. For others, the trigger is related to a certain place, like sitting at a desk working. 2. Eating ? You can change your eating habits by breaking the chain of events between the trigger for eating and eating itself. There are many ways to do this. For instance, you can: ? Limit where you eat to a few places (eg, dining room) ? Restrict the number of utensils (eg, only a fork) used for eating ? Drink a sip of water between each bite ? Chew your food a certain number of times ? Get up and stop eating every few minutes 3. What happens after you eat ? ? Rewarding yourself for good eating behaviors can help you to develop better habits. This is not a reward for weight loss; instead, it is a reward for changing unhealthy behaviors. ? Do not use food as a reward. Some people find money, clothing, or personal care (eg, a hair cut, manicure, or massage) to be effective rewards. Treat yourself immediately after making better eating choices to reinforce the value of the good behavior. ? You need to have clear behavior goals, and you must have a time frame for reaching your goals. Reward small changes along the way to your final goal. Other factors that contribute to successful weight loss ? ? Establish a jamey system ? Having a friend or family member available to provide support and reinforce good behavior is very helpful. The support person needs to understand your goals. ? Learn to be strong ? Learning to be strong when tempted by food is an important part of losing weight. As an example, you will need to learn how to say no and continue to say no when urged to eat at parties and social gatherings. Develop strategies for events before you go, such as eating before you go or taking low-calorie snacks and drinks with you. ? Develop a support system ? Having a support system is helpful when losing weight. This is why many commercial groups are successful. Family support is also essential; if your family does not support your efforts to lose weight, this can slow your progress or even keep you from losing weight. ? Positive thinking ? People often have conversations with themselves in their head; these conversations can be positive or negative. If you eat a piece of cake that was not planned, you may respond by thinking, Oh, you stupid idiot, you've blown your diet! and as a result, you may eat more cake. A positive thought for the same event could be, Well, I ate cake when it was not on my plan. Now I should do something to get back on track. A positive approach is much more likely to be successful than a negative one. ? Reduce stress ? Although stress is a part of everyday life, it can trigger uncontrolled eating in some people. It is important to find a way to get through these difficult times without eating or by eating low-calorie food, like raw vegetables. It may be helpful to imagine a relaxing place that allows you to temporarily escape from stress. With deep breaths and closed eyes, you can imagine this relaxing place for a few minutes. ? Self-help programs ? Self-help programs like Weight Watchers?, Overeaters Anonymous?, and Take Off Pounds Sensibly (TOPS)? work for some people. As with all weight loss programs, you are most likely to be successful with these plans if you make long-term changes in how you eat. CHOOSING A DIET ? A calorie is a unit of energy found in food. Your body needs calories to function. The goal of any diet is to burn up more calories than you eat. How quickly you lose weight depends upon several factors, such as your age, gender, and starting weight. ? Older people have a slower metabolism than young people, so they lose weight more slowly. ? Men lose more weight than women of similar height and weight when dieting because they use more energy. ? People who are extremely overweight lose weight more quickly than those who are only mildly overweight. How many calories do I need? ? You can estimate the number of calories you need per day based upon your current (or target) weight, gender, and activity level for women and for men. In general, it is best to choose foods that contain enough protein, carbohydrates, essential fatty acids, and vitamins. Try not to drink alcohol or drinks with added sugar, and most sweets (candy, cakes, cookies), since they rarely contain important nutrients. Portion-controlled diets ? One simple way to diet is to buy packaged foods, like frozen low-calorie meals or meal-replacement canned drinks. A typical meal plan for 1000 to 1500 calories per day may include: ? A meal-replacement drink or breakfast bar for breakfast ? A meal-replacement drink or a frozen low-calorie (250 to 350 calories) meal for lunch ? A frozen low-calorie meal or other prepackaged, calorie- controlled meal, along with extra vegetables for dinner Low-fat diet ? To reduce the amount of fat in your diet, you can: ? Eat low-fat foods. Low-fat foods are those that contain less than 30 percent of calories from fat. Fat is listed on the food facts label ? Count fat grams. For a 1500 calorie diet, this would mean about 45 g or fewer of fat per day. Low-carbohydrate diet ? Low- and gpld-kss-ixrpwxrxoeqt diets (eg, Atkins diet, TripAdvisor diet) have become popular ways to lose weight quickly. ? With a ohzi-jwd-cvmtvrockktb diet, you eat between 0 and 60 grams of carbohydrates per day (a standard diet contains 200 to 300 grams of carbohydrates) ? With a low-carbohydrate diet, you eat between 60 and 130 grams of carbohydrates per day ? Carbohydrates are found in fruits, vegetables, and grains (including breads, rice, pasta, and cereal), alcoholic beverages, and in dairy products. Meat and fish do not contain carbohydrates. ? Side effects of gmfm-nfy-bdillhxkflcr diets can include constipation, headache, bad breath, muscle cramps, diarrhea, and weakness. Mediterranean diet ? The term Mediterranean diet refers to a way of eating that is common in olive-growing regions around the [place]. Although there is some variation in Mediterranean diets, there are some similarities. Most Mediterranean diets include: ? A high level of monounsaturated fats (from olive or canola oil, walnuts, pecans, almonds) and a low level of saturated fats (from butter) ? A high amount of vegetables, fruits, legumes, and grains (7 to 10 servings of fruits and vegetables per day) ? A moderate amount of milk and dairy products, mostly in the form of cheese. Use low-fat dairy products (skim milk, fat-free yogurt, low-fat cheese). ? A relatively low amount of red meat and meat products. Substitute fish or poultry for red meat. ? For those who drink alcohol, a modest amount (mainly as red wine) may help to protect against cardiovascular disease. A modest amount is up to one (4 ounce) glass per day for women and up to two glasses per day for men. Which diet is best? ? No one diet is best for weight loss. Any diet will help you to lose weight if you stick with the diet. Therefore, it is important to choose a diet that includes foods you like. Fad diets ? Fad diets often promise quick weight loss (more than 1 to 2 pounds per week) and may claim that you do not need to exercise or give up favorite foods. Some fad diets cost a lot of money, because you have to pay for seminars or pills. Fad diets generally lack any scientific evidence that they are safe and effective, but instead rely on before and after photos or testimonials. Diets that sound too good to be true usually are. These plans are a waste of time and money and are not recommended. A doctor, nurse, or key carrier can help you find a safe and effective way to lose weight and keep it off. Adapted from [facility] Prescriptions ordered this encounter Disp Refills Start End PHENTERMINE 37.5 MG TABLET 30 t* 0 08/21/2017 09/20/2017 Class: Print RX Route: ORAL Sig: Take 1 tablet by mouth once daily for 30 days. Body mass index is 42.61 kg/m?. Medications Discontinued During This Encounter FLUoxetine (PROZAC) 10 mg capsule 60 c* 0 08/01/2017 08/21/2017 Route: ORAL Sig: Take 1 capsule by mouth once daily. Take 1 capsule daily for 7 days then increase to 2 tablets daily Disc: Reason for discontinue is not on file. Encounter Status:Closed by ELIZABETH DICKSON CNP on 08/21/17 CBC AND DIFFERENTIAL Collected: 08/01/2017 Status: F Source: [place] 12:[address] [facility] [place] REPOSITORY TYPE CODE TESTS RESULT OUT OF REFERENCE UNITS RANGE LAB WBC 3.70-11.00 k/uL WBC 5.75 LAB RBC 3.90-5.20 m/uL RBC 4.23 LAB HGB 11.5-15.5 g/dL Hemoglobin 12.8 LAB HCT 36.0-46.0 % Hematocrit 40.4 LAB MCV 80.0-100.0 fL MCV 95.5 LAB MCH 26.0-34.0 pG MCH 30.3 LAB MCHC 30.5-36.0 g/dL MCHC 31.7 LAB RDWCV 11.5-15.0 % RDW-CV 12.6 LAB PLTCT 150-400 k/uL Platelet Count 262 LAB MPV 9.0-12.7 fL MPV 11.4 LAB ANEUT % Neut% 59.0 LAB AANEUT 1.45-7.50 k/uL Abs Neut 3.38 LAB ALYMP % Lymph% 33.6 LAB AALYMP 1.00-4.00 k/uL Abs Lymph 1.93 LAB AMONO % [place]% 6.1 LAB AAMONO <0.87 k/uL Abs [place] 0.35 LAB AEOS % Eosin% 1.0 LAB AAEOS <0.46 k/uL Abs Eosin 0.06 LAB ABASO % Baso% 0.3 LAB AABASO <0.11 k/uL Abs Baso <0.03 LAB AUNRBC 0 /100 WBC NRBCs 0.0 LAB ABNRBC <0.01 k/uL Absolute nRBC <0.01 LAB DTYP DTYPE Auto Diff Performed By: #### CBCDIF, CMP, TSH, FT4, T3, B12, HBA1C, VITD #### [facility] [address] [place], [place] [address] COMP METABOLIC PANEL Collected: 08/01/2017 Status: F Source: [place] 12:[address] [facility] REPOSITORY TYPE CODE TESTS RESULT OUT OF REFERENCE UNITS RANGE LAB TP 6.3-8.0 g/dL Protein, Total 7.3 LAB ALB 3.9-4.9 g/dL Albumin 4.4 LAB CA 8.5-10.2 mg/dL Calcium, Total 9.2 LAB TBIL 0.2-1.3 mg/dL Bilirubin, Total 0.8 LAB ALKP 32-117 U/L Alkaline Phosphatase 71 LAB AST 13-35 U/L AST 22 LAB GLU 74-99 mg/dL Glucose 85 Result Comment: The [place] Diabetes Association (ADA) provides guidance for cutoff values for fasting glucose and random glucose. The ADA defines fasting as no caloric intake for at least 8 hours. Fas ting plasma glucose results between 100 to 125 mg/dL indicate increased risk for diabetes (prediabetes). Fasting plasma glucose results greater than or equal to 126 mg/dL meet the criteria for diagnosis of diabetes. In the absence of unequivocal hyperglycemia, results should be confirmed by repeat testing. In a patient with classic symptoms of hyperglycemia or hyperglycemic crisis, random plasma glucose results greater than or equal to 200 mg/dL meet the criteria for diagnosis of diabetes. Reference: Standards of Medical Care in Diabetes 2016, [place] [employer] Association. Diabetes Care. 2016.39(Suppl 1). LAB BUN 7-21 mg/dL BUN 9 LAB CRET 0.58-0.96 mg/dL Creatinine 0.72 LAB NA 136-144 mmol/L Sodium 140 LAB K 3.7-5.1 mmol/L Potassium 3.9 LAB CL 97-105 mmol/L Chloride 102 LAB CO2 22-30 mmol/L CO2 24 LAB AGAP 9-18 mmol/L Anion Gap 14 LAB ALT 7-38 U/L ALT 19 LAB GFRAA eGFR- Amer. >60 LAB GFRNAA . eGFR-All Other Races >60 Result Comment: eGFR (Estimated GFR) Units of measure: mL/min/1.73 meters squared eGFR is derived from the reexpressed MDRD Study equation using the following parameters: serum creatinine, age, gender and race. The creatinine assay has been calibrated to be traceable to IDMS. An eGFR <60 mL/min/1.73m2 for >3 months is consistent with chronic kidney disease. Refer to KDOQI guidelines for clinical interpretation. In patients with unstable renal function, e.g. those with acute kidney injury, the eGFR may not accurately reflect actual GFR. Performed By: #### CBCDIF, CMP, TSH, FT4, T3, B12, HBA1C, VITD #### [facility] [address] [place] [id number] TSH Collected: 08/01/2017 Status: F Source: [place] 12:[address] [facility] [place] REPOSITORY TYPE CODE TESTS RESULT OUT OF RANGE REFERENCE UNITS LAB TSH 0.400-5.500 uU/mL TSH 2.150 Result Comment: If the patient is , TSH reference range varies by gestational period: First Trimester 0.100-2.500 uU/mL Second Trimester 0.200-3.000 uU/mL Third Trimester 0.300-3.000 uU/mL References: 1. Varghese L, Cathy M, Poncho EK, et al. Management of Thyroid Dysfunction during and : An Endocrine Society Clinical Practice Guideline. J Clin Endocrinol Metab, 2012:97:2145-3130. 2. Clive NICHOLSON. Overview of thyroid disease in . UpToDate. 2016. Accessed on September 24, 2015. Performed By: #### CBCDIF, CMP, TSH, FT4, T3, B12, HBA1C, VITD #### [facility] [address] [address] FREE T4 Collected: 08/01/2017 Status: F Source: [place] 12:09 PM [facility] REPOSITORY TYPE CODE TESTS RESULT OUT OF RANGE REFERENCE UNITS LAB FT4 0.9-1.7 ng/dL Free T4 1.1 Performed By: #### CBCDIF, CMP, TSH, FT4, T3, B12, HBA1C, VITD #### [facility] [employer] [address] [address] T3 Collected: 08/01/2017 Status: F Source: [facility] 12:09 PM [facility] REPOSITORY TYPE CODE TESTS RESULT OUT OF RANGE REFERENCE UNITS LAB T3 79-165 ng/dL T3 121 Performed By: #### CBCDIF, CMP, TSH, FT4, T3, B12, HBA1C, VITD #### [facility] [address] [address] VITAMIN B12 Collected: 08/01/2017 Status: F Source: [place] 12:09 PM [facility] REPOSITORY TYPE CODE TESTS RESULT OUT OF REFERENCE UNITS RANGE LAB B12 232-1245 pg/mL Vitamin B12 895 Performed By: #### CBCDIF, CMP, TSH, FT4, T3, B12, HBA1C, VITD #### [facility] [address] [address] HEMOGLOBIN A1C Collected: 08/01/2017 Status: F Source: [place] 12:09 PM [facility] REPOSITORY TYPE CODE TESTS RESULT OUT OF REFERENCE UNITS RANGE LAB HGBA1C 4.3-5.6 % Hemoglobin A1c 5.2 LAB HBA0 mg/dL Est. Average Glucose 103 Result Comment: eAG: (Estimated average glucose) is a calculated value from HgbA1c and is associate financial representative of the average blood glucose level in the last 2-3 month period. Performed By: #### CBCDIF, CMP, TSH, FT4, T3, B12, HBA1C, VITD #### [facility] [employer] [address] [place], [place] [address] VITAMIN D 25 HYDROXY Collected: 08/01/2017 Status: F Source: [place] 12:09 PM [facility] REPOSITORY TYPE CODE TESTS RESULT OUT OF REFERENCE UNITS RANGE LAB VITD 31.0-80.0 ng/mL Low Vitamin D 25 19.4 Hydroxy Result Comment: Classification of 25 [place] Vitamin D status: Insufficiency/Moderate Deficiency: < or = 30 ng/mL Sufficiency/Optimal Levels: 31 to 80 ng/mL Toxicity: > 100 ng/mL Test performed by chemiluminescent immunoassay. Performed By: #### CBCDIF, CMP, TSH, FT4, T3, B12, HBA1C, VITD #### [facility] [employer] [address] [place], [place] [address] PROGRESS Observed: 08/01/2017 Status: COMPLETED Source: [place] 11:54 AM [facility] REPOSITORY HNO ID: [id number] Author: Elizabeth Smyth (Quality Measurement Specialist) Yessi Service: (none) Author Type: Nurse Practitioner Type: Progress Notes Filed: 08/01/2017 12:07 PM Note Text: HPI/CC: Ezekiel Pillai is an 32 year old female who presents for initiation of of depression and anxiety treatment and concern for weight gain. Gained 30lbs in 8 months. Decreased motivation, no exercise, not eating well and fatigue. Past history of depression or anxiety none. Recent loss of 10 days . Reviewed relevant PMHx, PSHx, Social Hx, current medications and allergies. OBJECTIVE/PHYSICAL EXAM: BP 118/72 Pulse 80 Resp 16 Wt 119.7 kg (264 lb) BMI 42.61 kg/m2 APPEARANCE Well appearing, alert, in no acute distress, well-hydrated, well nourished., Morbidly obese HEART RRR with normal S1 and S2, no murmurs, no gallops, no JVD appreciated LUNG clear to auscultation PSYCH: Posture and motor behavior: normal posture and motor behavior Dress, grooming, personal hygiene: normal dress and grooming Facial expression: poor eye contact Speech: normal speech Mood: anxious Coherency and relevance of thought: normal thought processes Memory: normal memory ASSESSMENT/PLAN: 1. Obesity, Class III, BMI 40-49.9 (morbid obesity) (HCC) - ICD9: 278.01, ICD10: E66.01 (primary diagnosis) - CBC + DIFF - COMP METABOLIC PANEL - TSH BLD - T3 BLD - T4 FREE/FREE THYROX - FLUOXETINE 10 MG CAPSULE - VITAMIN D 25 HYDROXY - VITAMIN B12 BLOOD - HGB A1C 2. Anxiety and depression - ICD9: 300.00, 311, ICD10: F41.9, F32.9 - start Prozac. 10 mg daily for 7 days then increase to 2 tablets daily - f/u in 3-4 weeks Elizabeth Dickson APRN.CNP CNOV Observed: 08/01/2017 Status: COMPLETED Source: [place] 11:20 AM [facility] REPOSITORY Office Visit (FAMPWS) EZEKIEL PILLAI ([id number]) 1985 F Date Time Provider Department 08/01/17 11:20 AM ELIZABETH DICKSON) FAMPWS During your visit today, we recorded the following information about you: Pulse Respiration Blood pressure Weight 80/minute 16/minute 118/72 119.7 kg Elizabeth Dickson APRN.CNP 08/01/2017 11:46 AM Signed TRYING TO LOSE WEIGHT? Your Body mass index is 42.61 kg/(m2). (Target BMI: 19-25) A person with a BMI between 25 and 29.9 is considered overweight A person with a BMI of 30 or greater is considered to be obese SETTING A WEIGHT LOSS GOAL: Lose 10% of body weight over six months, about 1-2 lbs per week LIFESTYLE CHANGES ? The goals of lifestyle changes are to help you change your eating habits, become more active, and be more aware of how much you eat and exercise, helping you to make healthier choices. This can be broken down into three steps: 1. Triggers to eat ? Determining what triggers you to eat involves figuring out what foods you eat and where and when you eat. To figure out what triggers you to eat, keep a record for a few days of everything you eat, the places where you eat, how often you eat, and the emotions you were feeling when you ate. For some people, the trigger is related to a certain time of day or night. For others, the trigger is related to a certain place, like sitting at a desk working. 2. Eating ? You can change your eating habits by breaking the chain of events between the trigger for eating and eating itself. There are many ways to do this. For instance, you can: ? Limit where you eat to a few places (eg, dining room) ? Restrict the number of utensils (eg, only a fork) used for eating ? Drink a sip of water between each bite ? Chew your food a certain number of times ? Get up and stop eating every few minutes 3. What happens after you eat ? ? Rewarding yourself for good eating behaviors can help you to develop better habits. This is not a reward for weight loss; instead, it is a reward for changing unhealthy behaviors. ? Do not use food as a reward. Some people find money, clothing, or personal care (eg, a hair cut, manicure, or massage) to be effective rewards. Treat yourself immediately after making better eating choices to reinforce the value of the good behavior. ? You need to have clear behavior goals, and you must have a time frame for reaching your goals. Reward small changes along the way to your final goal. Other factors that contribute to successful weight loss ? ? Establish a ANDquot;buddyANDquot; system ? Having a friend or family member available to provide support and reinforce good behavior is very helpful. The support person needs to understand your goals. ? Learn to be strong ? Learning to be strong when tempted by food is an important part of losing weight. As an example, you will need to learn how to say ANDquot;noANDquot; and continue to say no when urged to eat at parties and social gatherings. Develop strategies for events before you go, such as eating before you go or taking low-calorie snacks and drinks with you. ? Develop a support system ? Having a support system is helpful when losing weight. This is why many commercial groups are successful. Family support is also essential; if your family does not support your efforts to lose weight, this can slow your progress or even keep you from losing weight. ? Positive thinking ? People often have conversations with themselves in their head; these conversations can be positive or negative. If you eat a piece of cake that was not planned, you may respond by thinking, ANDquot;Oh, you stupid idiot, you've blown your diet!ANDquot; and as a result, you may eat more cake. A positive thought for the same event could be, ANDquot;Well, I ate cake when it was not on my plan. Now I should do something to get back on track.ANDquot; A positive approach is much more likely to be successful than a negative one. ? Reduce stress ? Although stress is a part of everyday life, it can trigger uncontrolled eating in some people. It is important to find a way to get through these difficult times without eating or by eating low-calorie food, like raw vegetables. It may be helpful to imagine a relaxing place that allows you to temporarily escape from stress. With deep breaths and closed eyes, you can imagine this relaxing place for a few minutes. ? Self-help programs ? Self-help programs like Weight Watchers?, Overeaters Anonymous?, and Take Off Pounds Sensibly (TOPS)? work for some people. As with all weight loss programs, you are most likely to be successful with these plans if you make long-term changes in how you eat. CHOOSING A DIET ? A calorie is a unit of energy found in food. Your body needs calories to function. The goal of any diet is to burn up more calories than you eat. How quickly you lose weight depends upon several factors, such as your age, gender, and starting weight. ? Older people have a slower metabolism than young people, so they lose weight more slowly. ? Men lose more weight than women of similar height and weight when dieting because they use more energy. ? People who are extremely overweight lose weight more quickly than those who are only mildly overweight. How many calories do I need? ? You can estimate the number of calories you need per day based upon your current (or target) weight, gender, and activity level for women and for men. In general, it is best to choose foods that contain enough protein, carbohydrates, essential fatty acids, and vitamins. Try not to drink alcohol or drinks with added sugar, and most sweets (candy, cakes, cookies), since they rarely contain important nutrients. Portion-controlled diets ? One simple way to diet is to buy packaged foods, like frozen low-calorie meals or meal-replacement canned drinks. A typical meal plan for 1000 to 1500 calories per day may include: ? A meal-replacement drink or breakfast bar for breakfast ? A meal-replacement drink or a frozen low-calorie (250 to 350 calories) meal for lunch ? A frozen low-calorie meal or other prepackaged, calorie- controlled meal, along with extra vegetables for dinner Low-fat diet ? To reduce the amount of fat in your diet, you can: ? Eat low-fat foods. Low-fat foods are those that contain less than 30 percent of calories from fat. Fat is listed on the food facts label ? Count fat grams. For a 1500 calorie diet, this would mean about 45 g or fewer of fat per day. Low-carbohydrate diet ? Low- and qtru-ndj-lonkyigjrwcy diets (eg, Atkins diet, TripAdvisor diet) have become popular ways to lose weight quickly. ? With a zkac-cda-yzrytavkbyfi diet, you eat between 0 and 60 grams of carbohydrates per day (a standard diet contains 200 to 300 grams of carbohydrates) ? With a low-carbohydrate diet, you eat between 60 and 130 grams of carbohydrates per day ? Carbohydrates are found in fruits, vegetables, and grains (including breads, rice, pasta, and cereal), alcoholic beverages, and in dairy products. Meat and fish do not contain carbohydrates. ? Side effects of rsxz-nrv-ellokqwwodlh diets can include constipation, headache, bad breath, muscle cramps, diarrhea, and weakness. Mediterranean diet ? The term ANDquot;Mediterranean dietANDquot; refers to a way of eating that is common in olive-growing regions around the [place] Sea. Although there is some variation in Mediterranean diets, there are some similarities. Most Mediterranean diets include: ? A high level of monounsaturated fats (from olive or canola oil, walnuts, pecans, almonds) and a low level of saturated fats (from butter) ? A high amount of vegetables, fruits, legumes, and grains (7 to 10 servings of fruits and vegetables per day) ? A moderate amount of milk and dairy products, mostly in the form of cheese. Use low-fat dairy products (skim milk, fat-free yogurt, low- fat cheese). ? A relatively low amount of red meat and meat products. Substitute fish or poultry for red meat. ? For those who drink alcohol, a modest amount (mainly as red wine) may help to protect against cardiovascular disease. A modest amount is up to one (4 ounce) glass per day for women and up to two glasses per day for men. Which diet is best? ? No one diet is ANDquot;bestANDquot; for weight loss. Any diet will help you to lose weight if you stick with the diet. Therefore, it is important to choose a diet that includes foods you like. Fad diets ? Fad diets often promise quick weight loss (more than 1 to 2 pounds per week) and may claim that you do not need to exercise or give up favorite foods. Some fad diets cost a lot of money, because you have to pay for seminars or pills. Fad diets generally lack any scientific evidence that they are safe and effective, but instead rely on ANDquot;beforeANDquot; and ANDquot;afterANDquot; photos or testimonials. Diets that sound too good to be true usually are. These plans are a waste of time and money and are not recommended. A doctor, nurse, or key carrier can help you find a safe and effective way to lose weight and keep it off. Adapted from [facility] Elizabeth Dickson APRN.[facility] 08/01/2017 12:07 PM Signed HPI/CC: Ezekiel Pillai is an 32 year old female who presents for initiation of of depression and anxiety treatment and concern for weight gain. Gained 30lbs in 8 months. Decreased motivation, no exercise, not eating well and fatigue. Past history of depression or anxiety none. Recent loss of 10 days . Reviewed relevant PMHx, PSHx, Social Hx, current medications and allergies. OBJECTIVE/PHYSICAL EXAM: BP 118/72 Pulse 80 Resp 16 Wt 119.7 kg (264 lb) BMI 42.61 kg/m2 APPEARANCE Well appearing, alert, in no acute distress, well- hydrated, well nourished., Morbidly obese HEART RRR with normal S1 and S2, no murmurs, no gallops, no JVD appreciated LUNG clear to auscultation PSYCH: Posture and motor behavior: normal posture and motor behavior Dress, grooming, personal hygiene: normal dress and grooming Facial expression: poor eye contact Speech: normal speech Mood: anxious Coherency and relevance of thought: normal thought processes Memory: normal memory ASSESSMENT/PLAN: 1. Obesity, Class III, BMI 40-49.9 (morbid obesity) ([facility]) - ICD9: 278.01, ICD10: E66.01 (primary diagnosis) - CBC + DIFF - COMP METABOLIC PANEL - TSH BLD - T3 BLD - T4 FREE/FREE THYROX - FLUOXETINE 10 MG CAPSULE - VITAMIN D 25 HYDROXY - VITAMIN B12 BLOOD - HGB A1C 2. Anxiety and depression - ICD9: 300.00, 311, ICD10: F41.9, F32.9 - start Prozac. 10 mg daily for 7 days then increase to 2 tablets daily - f/u in 3-4 weeks Elizabeth Dickson APRN.[employer]I LIFT ATTENDANT Referring Provider: SELF [[id number]] Allergies As of Date: 08/01/2017 (No Known Allergies) Date Reviewed: 08/01/2017 Reviewed by: Nikolas Tao LPN - Fully Assessed Reason for Visit: Acute Visit [896] Cmt: weight issues/depression/anxiety Primary Visit Diagnosis:Obesity, Class III, BMI 40-49.9 (morbid obesity) ([facility]) [E66.01] Other Visit Diagnosis:Anxiety and depression [F41.9, F32.9] Order(s):CBC + DIFF [SQCBCDIF] Order #: [id number] FUTURE COMP METABOLIC PANEL [SQCMP] Order #: [id number] FUTURE TSH BLD [SQTSH] Order #: [id number] FUTURE T3 BLD [SQT3] Order #: [id number] FUTURE T4 FREE/FREE THYROX [SQFT4] Order #: [id number] FUTURE FLUoxetine (PROZAC) 10 mg capsuleTake 1 capsule by mouth once daily. Take 1 capsule daily for 7 days then increase to 2 tablets dailyDisp: 60 capsuleRfl: 0 VITAMIN D 25 HYDROXY [SQVITD] Order #: [id number] FUTURE VITAMIN B12 BLOOD [SQB12] Order #: [id number] FUTURE HGB A1C [UXCDL8L] Order #: [id number] FUTURE Prescriptions as of 08/01/2017 Sig: IBUPROFEN 600 MG TABLET Take 1 tablet by mouth every * PEPCID ORAL Take by mouth. FLUOXETINE 10 MG CAPSULE Take 1 capsule by mouth once * Problem List As Of Date 08/01/2017 Noted Resolved Pilonidal cyst without mention of abscess [L05.*INVALID FOR*01/01/2012 Moderate dysplasia of cervix [N87.1] INVALID FOR*11/26/2014 Condyloma acuminatum [A63.0] INVALID FOR*01/01/2012 Supervision of normal first [Z34.00] INVALID FOR*01/01/2012 Candidiasis of vulva and vagina [B37.3] INVALID FOR*01/01/2012 with uncertain dates [Z34.90] INVALID FOR*02/16/2012 More... Obesity in [O99.210] INVALID FOR*01/02/2017 More... Tobacco use in [O99.330] INVALID FOR*01/06/2013 More... Supervision of other normal [Z34.80] INVALID FOR*01/06/2013 Uterine size date discrepancy [O26.849] INVALID FOR*01/06/2013 GBS (group B streptococcus) UTI complicating pr*INVALID FOR*11/26/2014 More... Encounter for supervision of normal first pregn*INVALID FOR*05/10/2016 Encounter for supervision of normal i*INVALID FOR*01/02/2017 Current with history of pre-term labo*INVALID FOR*01/02/2017 More... polycystic kidney disease affecting antep*INVALID FOR*01/02/2017 More... Positive GBS test [B95.1] INVALID FOR*01/02/2017 [Z34.90] INVALID FOR*01/02/2017 Other instructions from your clinician: TRYING TO LOSE WEIGHT? Your Body mass index is 42.61 kg/(m2). (Target BMI: 19-25) A person with a BMI between 25 and 29.9 is considered overweight A person with a BMI of 30 or greater is considered to be obese SETTING A WEIGHT LOSS GOAL: Lose 10% of body weight over six months, about 1-2 lbs per week LIFESTYLE CHANGES ? The goals of lifestyle changes are to help you change your eating habits, become more active, and be more aware of how much you eat and exercise, helping you to make healthier choices. This can be broken down into three steps: 1. Triggers to eat ? Determining what triggers you to eat involves figuring out what foods you eat and where and when you eat. To figure out what triggers you to eat, keep a record for a few days of everything you eat, the places where you eat, how often you eat, and the emotions you were feeling when you ate. For some people, the trigger is related to a certain time of day or night. For others, the trigger is related to a certain place, like sitting at a desk working. 2. Eating ? You can change your eating habits by breaking the chain of events between the trigger for eating and eating itself. There are many ways to do this. For instance, you can: ? Limit where you eat to a few places (eg, dining room) ? Restrict the number of utensils (eg, only a fork) used for eating ? Drink a sip of water between each bite ? Chew your food a certain number of times ? Get up and stop eating every few minutes 3. What happens after you eat ? ? Rewarding yourself for good eating behaviors can help you to develop better habits. This is not a reward for weight loss; instead, it is a reward for changing unhealthy behaviors. ? Do not use food as a reward. Some people find money, clothing, or personal care (eg, a hair cut, manicure, or massage) to be effective rewards. Treat yourself immediately after making better eating choices to reinforce the value of the good behavior. ? You need to have clear behavior goals, and you must have a time frame for reaching your goals. Reward small changes along the way to your final goal. Other factors that contribute to successful weight loss ? ? Establish a jamey system ? Having a friend or family member available to provide support and reinforce good behavior is very helpful. The support person needs to understand your goals. ? Learn to be strong ? Learning to be strong when tempted by food is an important part of losing weight. As an example, you will need to learn how to say no and continue to say no when urged to eat at parties and social gatherings. Develop strategies for events before you go, such as eating before you go or taking low-calorie snacks and drinks with you. ? Develop a support system ? Having a support system is helpful when losing weight. This is why many commercial groups are successful. Family support is also essential; if your family does not support your efforts to lose weight, this can slow your progress or even keep you from losing weight. ? Positive thinking ? People often have conversations with themselves in their head; these conversations can be positive or negative. If you eat a piece of cake that was not planned, you may respond by thinking, Oh, you stupid idiot, you've blown your diet! and as a result, you may eat more cake. A positive thought for the same event could be, Well, I ate cake when it was not on my plan. Now I should do something to get back on track. A positive approach is much more likely to be successful than a negative one. ? Reduce stress ? Although stress is a part of everyday life, it can trigger uncontrolled eating in some people. It is important to find a way to get through these difficult times without eating or by eating low-calorie food, like raw vegetables. It may be helpful to imagine a relaxing place that allows you to temporarily escape from stress. With deep breaths and closed eyes, you can imagine this relaxing place for a few minutes. ? Self-help programs ? Self-help programs like Weight Watchers?, Overeaters Anonymous?, and Take Off Pounds Sensibly (TOPS)? work for some people. As with all weight loss programs, you are most likely to be successful with these plans if you make long-term changes in how you eat. CHOOSING A DIET ? A calorie is a unit of energy found in food. Your body needs calories to function. The goal of any diet is to burn up more calories than you eat. How quickly you lose weight depends upon several factors, such as your age, gender, and starting weight. ? Older people have a slower metabolism than young people, so they lose weight more slowly. ? Men lose more weight than women of similar height and weight when dieting because they use more energy. ? People who are extremely overweight lose weight more quickly than those who are only mildly overweight. How many calories do I need? ? You can estimate the number of calories you need per day based upon your current (or target) weight, gender, and activity level for women and for men. In general, it is best to choose foods that contain enough protein, carbohydrates, essential fatty acids, and vitamins. Try not to drink alcohol or drinks with added sugar, and most sweets (candy, cakes, cookies), since they rarely contain important nutrients. Portion-controlled diets ? One simple way to diet is to buy packaged foods, like frozen low-calorie meals or meal-replacement canned drinks. A typical meal plan for 1000 to 1500 calories per day may include: ? A meal-replacement drink or breakfast bar for breakfast ? A meal-replacement drink or a frozen low-calorie (250 to 350 calories) meal for lunch ? A frozen low-calorie meal or other prepackaged, calorie- controlled meal, along with extra vegetables for dinner Low-fat diet ? To reduce the amount of fat in your diet, you can: ? Eat low-fat foods. Low-fat foods are those that contain less than 30 percent of calories from fat. Fat is listed on the food facts label ? Count fat grams. For a 1500 calorie diet, this would mean about 45 g or fewer of fat per day. Low-carbohydrate diet ? Low- and ueov-ocd-gkgqqqnmyyev diets (eg, Atkins diet, TripAdvisor diet) have become popular ways to lose weight quickly. ? With a qxic-xmn-heqwqjlgomnq diet, you eat between 0 and 60 grams of carbohydrates per day (a standard diet contains 200 to 300 grams of carbohydrates) ? With a low-carbohydrate diet, you eat between 60 and 130 grams of carbohydrates per day ? Carbohydrates are found in fruits, vegetables, and grains (including breads, rice, pasta, and cereal), alcoholic beverages, and in dairy products. Meat and fish do not contain carbohydrates. ? Side effects of leif-cil-iujuxylcpkji diets can include constipation, headache, bad breath, muscle cramps, diarrhea, and weakness. Mediterranean diet ? The term Mediterranean diet refers to a way of eating that is common in olive-growing regions around the [place]. Although there is some variation in Mediterranean diets, there are some similarities. Most Mediterranean diets include: ? A high level of monounsaturated fats (from olive or canola oil, walnuts, pecans, almonds) and a low level of saturated fats (from butter) ? A high amount of vegetables, fruits, legumes, and grains (7 to 10 servings of fruits and vegetables per day) ? A moderate amount of milk and dairy products, mostly in the form of cheese. Use low-fat dairy products (skim milk, fat-free yogurt, low-fat cheese). ? A relatively low amount of red meat and meat products. Substitute fish or poultry for red meat. ? For those who drink alcohol, a modest amount (mainly as red wine) may help to protect against cardiovascular disease. A modest amount is up to one (4 ounce) glass per day for women and up to two glasses per day for men. Which diet is best? ? No one diet is best for weight loss. Any diet will help you to lose weight if you stick with the diet. Therefore, it is important to choose a diet that includes foods you like. Fad diets ? Fad diets often promise quick weight loss (more than 1 to 2 pounds per week) and may claim that you do not need to exercise or give up favorite foods. Some fad diets cost a lot of money, because you have to pay for seminars or pills. Fad diets generally lack any scientific evidence that they are safe and effective, but instead rely on before and after photos or testimonials. Diets that sound too good to be true usually are. These plans are a waste of time and money and are not recommended. A doctor, nurse, or key carrier can help you find a safe and effective way to lose weight and keep it off. Adapted from [facility] Prescriptions ordered this encounter Disp Refills Start End FLUOXETINE 10 MG CAPSULE 60 c* 0 08/01/2017 Route: ORAL Sig: Take 1 capsule by mouth once daily. Take 1 capsule daily for 7 days then increase to 2 tablets daily Medications Discontinued During This Encounter Inwapolw-Hu-Zag-Fe-FA ORAL * 0 03/22/2010 08/01/2017 Class: OTC Route: ORAL Sig: Take one(1) tablet daily. Disc: Reason for discontinue is not on file. docusate sodium (COLACE) 100 mg caps* 60 c* 0 11/21/2016 08/01/2017 Class: Print RX Route: ORAL Sig: Take 2 capsules by mouth daily at bedtime. Disc: Reason for discontinue is not on file. acetaminophen (TYLENOL) 325 mg tablet 60 t* 0 11/21/2016 08/01/2017 Class: Print RX Route: ORAL Sig: Take 2 tablets by mouth every 6 hours as needed. Disc: Reason for discontinue is not on file. Questionnaire: ANABELLA-7 ANXIETY SCALE Feeling nervous, anxious, or on edge -> 2 Over half the days Not being able to stop or control worrying -> 2 Over half the days Worrying too much about different things -> 3 Nearly every day Trouble relaxing -> 1 Several days Being so restless that it's hard to sit still -> 1 Several days Being easily annoyed or irritable -> 3 Nearly every day Feeling afraid as if something awful might happen -> 3 Nearly every day ANABELLA-7 Anxiety Score -> 15 Cmt: severe anxiety If you checked off any problems, how difficult have these problems made it for you to do your work, take care of things at home, or get along with other people? -> Not difficult at all Encounter Status:Closed by ELIZABETH DICKSON CNP on 08/01/17 ALLERGIES ALLERGIES DATE TYPE / CODE NAME / CODE REACTION SEVERITY SOURCE 10/12/2014 Drug No Known Unknown [facility] Allergy/416 Allergies/S73748 [facility] 408645(SNOM 0388(RXNORM) Repository ED CT) /[id number] NO KNOWN [facility] 6(SNOMED ALLERGIES [facility]) Repository Drug NO KNOWN [facility] Class/14172 ALLERGIES [address] [place] 1003(SNOMED Repository CT) ENCOUNTERS ENCOUNTERS ADMIT/DISCHARGE ACCOUNT NUMBER ADMITTING ENCOUNTER LOCATION SOURCE CLASS 04/08/2018/04/10/19 [id number] Ambulatory [address] Repository 03/26/2018/03/26/[id number] ding:SDCRoom Repository : AC19 03/26/2018/03/27/20 [id number] Ambulatory [address] Repository 03/25/2018/03/26/20 [id number] Ambulatory [address] Repository 02/27/2018/02/28/20 [id number] Ambulatory [address] [place] Repository 02/27/2018/04/05/20 [id number] Ambulatory [address] [place] Repository 02/21/2018/02/22/20 [id number] Ambulatory [address] Repository 12/25/2017 [id number] Ambulatory MARKIE Hopper [facility] MEDICAL Repository CENTERBuildi ng:OSCAR 11/12/2017/11/14/19 [id number] Ambulatory [address] [place] Repository 10/17/2017/10/19/19 [id number] Ambulatory [address] [place] Repository 09/19/2017/09/21/19 [id number] Ambulatory [address] Repository 08/21/2017/08/24/19 [id number] Ambulatory [address] Repository 08/01/[id number] [facility] Repository 08/01/2017/08/02/19 [id number] Ambulatory [address] Repository PAYERS PAYERS ENCOUNTER GUARANTOR PAYER SUBSCRIBER SOURCE 03/26/2018 EZEKIEL Mckeon Primary EZEKIEL Freeman [id number] [facility] Number: [id number] [place], [place] [id number] Repository [address]Khn: [phone]) Date:[phone] ([place]) [id number], [place] [address]HM: 03/26/2018 Secondary EZEKIELALEC Freeman Insurance:CAIO SHARPTONDOB: [facility] [id number] Hospital PLANPolicy Number: Repository [id number] Date:[id number] [place] [id number]: 03/26/2018 Tertiary NOT GIVENUNK Pete Insurance:SELF PAY [facility] Number: Effective Repository Date:2018-03-26 12/25/2017 EZEKIEL M Primary EZEKIEL Hopper SHARPTONDOB: Insurance:CIGNA SHARPTONDOB: [facility] [id number] Repository SUNSET NETWORKPolicy Number: ANDREA ROSAS [id number]: [phone]) Date: () 12/25/2017 Secondary EZEKIEL Hopper General Insurance:CA[facility] [place] [facility] MEDICAIDPolicy [id number] Repository Number: [id number] Date:
== END 2018-03-26 17:16 | disposition home or self-care (01) ==
LOC: SDC 12:30 → AC 12:34
PROVIDERS: Family Provider Nurse Practitioner Adult Health; PCP Nurse Practitioner Adult Health; Referring Provider Obstetrics & Gynecology; Visit Provider Obstetrics & Gynecology
PROC: (CPT 59812; principal; 2018-03-26 08:55)
DX: O03.4 Incomplete spontaneous abortion without complication (principal); K21.9 Gastro-esophageal reflux disease without esophagitis; Z87.891 Personal history of nicotine dependence; Z86.2 Personal history of diseases of the blood and blood-forming organs and certain disorders involving the immune mechanism
CPT/HCPCS: 59812; 85027; 86850; 86900; 88305; J7120

== ENCOUNTER 2019-12-27 06:50 | Inpatient (IN) | payer OTHER, SELFPAY ==
[2019-12-27] VITALS (17 sets, daily range): BP systolic 112–151; BP diastolic 56–82; PULSE 70–94; RESP 14–16; TEMP 36.1–36.8; BMI 44.4
[2019-12-27] MEDS: Lactated Ringers 1,000 ML 50 ML IV (08:10)
[2019-12-27 08:37] LABS: Absolute Lymphocyte Count 1.59 X10^3/uL (0.83-4.51); Absolute Neutrophil Count 5.8 X10^3/uL (2.0-7.7); Basophil# 0.01 X10^3/uL; Basophil% 0.1 % (0-1); Eosinophil# 0.06 X10^3/uL; Eosinophils% 0.8 % (0-5); Hemoglobin 12.5 g/dL (12.0-15.0); Lymphocyte # 1.59 X10^3/ul (4.0); Lymphocyte % 19.9 % (19-41); Mean Corp Hgb Conc 33.8 g/dL (32-36); Mean Corpuscular Hgb 31.6 pg (27.0-32.0); Mean Corpuscular Volume 93.7 fL (81-99); Mean Platelet Vol. 12.5 fl (6.2-12.0); Monocyte# 0.52 X10^3/uL; Monocyte% 6.5 % (0-10); NRBC Flagged by Analyzer 0 % (0-5); Neutrophil # 5.75 X10^3/uL (2.7-7.7); Neutrophil % 72.2 % (47-70); Platelet Count 177 K/mm3 (150-450); RBC Distribution Width CV 12.8 % (11.6-14.6); Red Blood Count 3.95 M/mm3 (4.2-5.4)
[2019-12-27] MEDS: Oxytocin 30 units/NS 500 ml 30 UNITS/500 ML IV.SOLN IV (08:55)
--- NOTE | 2019-12-27 11:29 | PCM.HP.OB ---
- Problem List (1) Obesity affecting Status: Acute (2) Positive GBS test Status: Acute (3) History of Status: Acute (4) History of depression Status: Acute (5) History of delivery Status: Acute (6) Family history of recurrent miscarriage Status: Acute (7) Encounter for induction of labor Status: Acute History Date of Admission: 12/27/19 Final PRUDENCE: 01/03/20 Final PRUDENCE Source: US <20 weeks Gestational age: 39 Weeks and 0 Days History of this : This is a 34 year-old, G [7], P [3123], at 39 weeks gestational age for induction of labor due to history of demise. Allergies No Known Allergies Allergy (Verified 10/12/14 01:50) Home Medications: Home Medications Vits [Prenatabs FA ] 1 tablet PO DAILY 10/12/14 Smoking Status: Former smoker Alcohol: None Number of Fetus(es): 1 NST - FHR Rate Baby A Baseline: 145 Variability:: Moderate Accelerations:: 15 x 15 Decelerations:: None FHR Category:: Category I Uterine Activity:: Irregular. Pitocin at 6 mu's History Past Pregnancies: Past Pregnancies Delivery Date Name GA/ Weeks Outcome Route Wt Sex Labor Length Anesthesia Delivery Location Provider FOB Labs: Mom's Labs & Results 12/27/19 12/27/19 08:10 08:10 WBC 8.0 RBC 3.95 L Hgb 12.5 Hct 37.0 MCV 93.7 MCH 31.6 MCHC 33.8 RDW Std Deviation 44.0 H RDW Coeff of Brooke 12.8 Plt Count 177 MPV 12.5 H Immature Gran % (Auto) 0.500 Neut % (Auto) 72.2 H Lymph % (Auto) 19.9 Faulkner % (Auto) 6.5 Eos % (Auto) 0.8 Baso % (Auto) 0.1 Absolute Neuts (auto) 5.8 Absolute Lymphs (auto) 1.59 Nucleated RBC % 0 Blood Type A POSITIVE Antibody Screen NEGATIVE Course Did the patient receive Yes care? Labs Blood Type: A RH: POSITIVE RPR/VDRL/Syphilis Nonreactive Rubella status Immune HbSAg Negative Date Done: 06/30/19 Chlamydia Negative Gonorrhea Negative HIV/AIDS Non-Reactive Group B Strep: Positive Current Obstetrical History Gestational Diabetes No Incompetent Cervix No Infertility No IUGR No Macrosomia No Hypertension/Pre-eclampsia No Placenta Previa/Abruption No PTL/PROM No Uterine anomaly No Oligohydramnios No Polyhydramnios No Multiple gestation No Past Medical History Asthma No Diabetes No Hypertension No Heart disease No Mitral valve prolapse No Neurologic/Seizure disorder/ No Migraines Kidney disease No Liver disease No Varicosities No Clotting disorders/Hx of DVT No Thyroid Dysfunction No Other medical diseases No Psychiatric disorders No Major trauma No Abnormal PAP smear Yes: hx of hpv Sleep apnea No Mammogram in the last 2 years No Social History Marital Status: Alleged father Donnell Hx Smoking No Smoking Status Former smoker Expected Delivery Method: Spontaneous Vaginal Review of Systems Constitutional: Denies: Chills, Fever, Weight Change HEENT: Denies: Head Aches, Sinus Congestion, Sinus Drainage Cardiovascular: Denies: Chest Pain, Palpitations Respiratory: Denies: Cough, Shortness of breath at rest, Sputum production Gastrointestinal: Denies: Abdominal Pain, Nausea, Vomiting Genitourinary: Denies: Dysuria Musculoskeletal: Denies: Joint Pain, Joint Tenderness Skin: Denies: Rash, Wounds Neurological: Denies: Numbness, Tingling, Focal weakness Psychiatric: Denies: Anxiety, Depression, Homicidal Ideations, Suicidal Ideations Hematologic/ Lymphatic: Denies: Easy Bruising, Easy Bleeding Physical Exam Vitals: Vital Signs Pulse BP 70 124/82 H 12/27/19 10:18 12/27/19 10:18 General: Alert, Oriented x3, Cooperative HEENT: Atraumatic, Normocephalic. 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 A:Induction of Labor History of demise P: 1) Admit to labor and delivery 2) IV and routine labs 3) EFM and TOCO 4) GBS prophylaxis with Penicillin G 3 million MU every 4 hrs 5) Positional changes. Planning unmedicated 6) notified of patient status and in labor.
[2019-12-27] MEDS: Oxytocin 30 units/NS 500 ml 30 UNITS/500 ML IV.SOLN 334 UNITS IV (14:29)
--- NOTE | 2019-12-27 14:40 | PCM.OPRPT ---
Problem List (1) Obesity affecting Status: Acute (2) Positive GBS test Status: Acute (3) History of Status: Acute (4) History of depression Status: Acute (5) History of delivery Status: Acute (6) Family history of recurrent miscarriage Status: Acute (7) Encounter for induction of labor Status: Acute (8) Vaginal delivery Status: Acute Vaginal Delivery Maternal Presentation: Medically Indicated Induction Amniotic Membrane Rupture Type: Artificial Amniotic Fluid Description: Clear Final PRUDENCE: 01/03/20 Final PRUDENCE Source: US <20 weeks Gestational age: 39 Weeks and 0 Days Date of Procedure: 12/27/19 Pre-Operative Diagnosis: Induction of Labor Post-Operative Diagnosis: Vaginal Delivery Surgery/ Procedure Performed: Spontaneous Vaginal Delivery Type of Anesthesia: None Description of Procedure: Progressed to complete with spontaneous urge to push. of viable male over intact perineum at 1425. APGARS 8,9. head delivered with body forthcoming. Strong cry, placed on maternal abdomen. Mouth and nares suctioned for secretions. Pitocin started for active 3rd stage management. Placenta delivered with maternal effort, intact via gene, 3 vessel cord. Fundus firm and hemostasis achieved. Perineum inspected and intact. Vaginal sweep completed. Sponge and instrument count correct. Mom and baby stable. Family bonding well, planning to breastfeed. notified of patient status. Presentation: Vertex Placental Delivery Description: Spontaneous Placenta Disposition: [facility] Cord Vessel Description: 3 Vessels Nuchal Cord Compression: Without compression Cord Entanglement: None Estimated Blood Loss: 300ml A gender: Male (1 minute): 8 (5 minute): 9 Episiotomy Description: None Laceration: None Medications given after delivery: IV Pitocin Complications: None
[2019-12-27] MEDS: Ibuprofen 600 MG Tablet PO ×2 (17:53→23:34)
[2019-12-28 03:20] VITALS: BP 108/60; PULSE 76; RESP 18; TEMP 36.8
[2019-12-28 03:40] LABS: Hematocrit 32.2 % (37-47); Hemoglobin 10.9 g/dL (12.0-15.0); Mean Corp Hgb Conc 33.9 g/dL (32-36); Mean Corpuscular Hgb 31.8 pg (27.0-32.0); Mean Corpuscular Volume 93.9 fL (81-99); Mean Platelet Vol. 12.3 fl (6.2-12.0); Platelet Count 159 K/mm3 (150-450); RBC Distribution Width CV 12.8 % (11.6-14.6); RBC Distribution Width SD 43.9 fl (35.1-43.9); Red Blood Count 3.43 M/mm3 (4.2-5.4); White Blood Count 11.5 K/mm3 (4.4-11.0)
[2019-12-28] MEDS: Senna/Docusate Sodium 1 Tablet PO (07:55)
[2019-12-28] MEDS: Ibuprofen 600 MG Tablet PO ×2 (07:55→14:28)
[2019-12-28 07:59] VITALS: BP 129/85; PULSE 85; RESP 18; TEMP 36.6
[2019-12-28 09:07] VITALS: BP 105/61; PULSE 75; RESP 16; O2SAT 97
--- NOTE | 2019-12-28 12:45 | PCM.PN.OB ---
Patient Problems: Active and Suspected Problems Obesity affecting (Acute) Positive GBS test (Acute) History of (Acute) History of depression (Acute) History of delivery (Acute) Family history of recurrent miscarriage (Acute) Encounter for induction of labor (Acute) Vaginal delivery (Acute) Subjective: Doing well per patient and nursing staff. Ambulating and taking PO without difficulty. Voiding and passing flatus. without complications. Lochia normal. Awaiting baby to have circumcision. Planning D/C home today. - Physical Exam Vitals/I&O's: Vital Signs Temp Pulse Resp BP Pulse Ox 97.8 F 75 16 105/61 97 12/28/19 07:59 12/28/19 09:07 12/28/19 09:07 12/28/19 09:07 12/28/19 09:07 Oxygen Delivery Method Room Air Weight: 275 lb 4 oz Body Mass Index (BMI) 44.4 Intake and Output for Last 24 Hours 12/26/19 12/27/19 12/28/19 23:59 23:59 23:59 Intake Total 2196.54 / 2196.54 Balance 2196.54 / 2196.54 General: Alert, Oriented x3, Cooperative HEENT: Atraumatic, Normocephalic Neck: Trachea Midline Lungs: Clear to auscultation, Normal air movement, No rhonchi, No wheeze Cardiovascular: Regular rate, Regular Rhythm, No murmurs Abdomen: Bowel Sounds Present, Soft - Fundus firm 2 below U Extremities: No edema - Remi's negative Neurological: Deep Tendon Reflexes 2+/4 and Symmetrical Psych/Mental Status: Normal Affect, Appropriate Laboratory Results 12/28/19 03:25: WBC 11.5 H, RBC 3.43 L, Hgb 10.9 L, Hct 32.2 L, MCV 93.9, MCH 31.8, MCHC 33.9, RDW Std Deviation 43.9, RDW Coeff of Brooke 12.8, Plt Count 159, MPV 12.3 H Current Medications Acetaminophen (Tylenol) 1,000 mg PO Q8H PRN PRN PRN Reason: Pain Score 1-3/10 Bisacodyl (Dulcolax) 10 mg RECTAL UD PRN PRN Reason: If no BM Dibucaine (Dibucaine) 1 applic TOPICAL TID PRN PRN; Protocol PRN Reason: Discomfort Hydrocortisone (Hytone) 1 applic TOPICAL TID PRN PRN; Protocol PRN Reason: Discomfort Ibuprofen (Motrin) 600 mg PO Q6H PRN PRN PRN Reason: Pain Score 1-3/10 Last Admin: 12/28/19 07:55 Dose: 600 mg Documented by: Methylergonovine Maleate (Methergine) 0.2 mg IM X1 PRN PRN Reason: Excess bleeding/uterine atony Ondansetron HCl (Zofran) 4 mg IV Q4H PRN PRN PRN Reason: Nausea Multivit/Folic Acid/Iron (Prenatabs Fa) 1 tablet PO DAILY@1200 OLGA Senna/Docusate Sodium (Senokot-S, Riddhi-Colace) 1 - 2 tablet PO DAILY PRN PRN PRN Reason: Constipation Last Admin: 12/28/19 07:55 Dose: 2 tablet Documented by: Simethicone (Mylicon) 80 mg PO PCHS PRN PRN Reason: Indigestion/Stomach pain Sodium Chloride () 5 - 15 ml IV UD PRN PRN Reason: SALINE FLUSH Medical Necessity - Tobacco Use Smoking Status: Former smoker Assessment/Plan All Active Problems Obesity affecting (Acute) Positive GBS test (Acute) History of (Acute) History of depression (Acute) History of delivery (Acute) Family history of recurrent miscarriage (Acute) Encounter for induction of labor (Acute) Vaginal delivery (Acute) A:PPD #1 P: 1) Routine and instructions 2) D/C home today 3) Follow up in 2 weeks and 6 weeks for visit.
--- NOTE | 2019-12-28 12:48 | DCINST_ITS ---
Discharge Diet: No Restrictions Discharge Activity: Return to Normal Activity, May not drive while taking narcotic pain medications., May Shower, May Take a Tub Bath May resume sexual activity in: 4-6 weeks Weight Bearing Status: Full weight bearing Additional Activity Instructions:: Nothing in the vagina for 4-6 weeks. You may return to work/school in 6 weeks. Call your doctor if your incision/area has: Continuous Slow Oozing, Sudden Increased Bleeding, Increased Pain/ Swelling, Increased Redness, Foul Smelling Discharge Additional Instructions: If you experience any of the following, contact your healthcare provider. * Bleeding that soaks a pad every hour for 2 hours * Fever 100.4 or higher * Unrelieved incision or abdominal pain * Swelling, redness, discharge or bleeding from your incision or episiotomy site * Your incision begins to separate * Problems urinating (including inability to urinate or burning while urinating). * Visual changes * Severe headache * Flu-like symptoms * Pain or redness in one of both of your breasts * Pain, warmth, tenderness or swelling in your legs, especially the calf area * Frequent nausea and vomiting * Symptoms of depression or anxiety If you experience any of the following, call 911 or go to the nearest Emergency Room. * Chest pain * Problems breathing * Seizure activity * Partial or complete paralysis of a body part, slurred speech, weakness or drooping of the face, or a sudden inability to walk or hold your balance Allergies/Adverse Reactions: Allergies No Known Allergies Allergy (Verified 10/12/14 01:50) Medications to take at Discharge Vits [Prenatabs FA ] 1 tablet PO DAILY 10/12/14 Ibuprofen [Motrin] 600 mg PO Q6H PRN PRN tab 12/28/19 Please Follow Up With: Susie Hale CNM When: Call to make an appointment with your doctor in 2 weeks virtual visit and 6 weeks in office. Primary Care Physician: Monique Dickson NP, AGRICULTURAL SPECIALIST-C [Primary Care Provider] - Test Results: Test results from this visit will be discussed in further detail at your follow- up appointment, if applicable.
--- NOTE | 2019-12-28 12:48 | PCM.DCVAG ---
Discharge Diet: No Restrictions Discharge Activity: Return to Normal Activity, May not drive while taking narcotic pain medications., May Shower, May Take a Tub Bath May resume sexual activity in: 4-6 weeks Weight Bearing Status: Full weight bearing Additional Activity Instructions:: Nothing in the vagina for 4-6 weeks. You may return to work/school in 6 weeks. Call your doctor if your incision/area has: Continuous Slow Oozing, Sudden Increased Bleeding, Increased Pain/ Swelling, Increased Redness, Foul Smelling Discharge Additional Instructions: If you experience any of the following, contact your healthcare provider. Bleeding that soaks a pad every hour for 2 hours Fever 100.4 or higher Unrelieved incision or abdominal pain Swelling, redness, discharge or bleeding from your incision or episiotomy site Your incision begins to separate Problems urinating (including inability to urinate or burning while urinating). Visual changes Severe headache Flu-like symptoms Pain or redness in one of both of your breasts Pain, warmth, tenderness or swelling in your legs, especially the calf area Frequent nausea and vomiting Symptoms of depression or anxiety If you experience any of the following, call 911 or go to the nearest Emergency Room. Chest pain Problems breathing Seizure activity Partial or complete paralysis of a body part, slurred speech, weakness or drooping of the face, or a sudden inability to walk or hold your balance Allergies/Adverse Reactions: Allergies No Known Allergies Allergy (Verified 10/12/14 01:50) Medications to take at Discharge Vits [Prenatabs FA ] 1 tablet PO DAILY 10/12/14 Ibuprofen [Motrin] 600 mg PO Q6H PRN PRN tab 12/28/19 Please Follow Up With: Susie Hale CNM When: Call to make an appointment with your doctor in 2 weeks virtual visit and 6 weeks in office. Primary Care Physician: Monique Dickson NP, ROLL OR TAPE EDGE MACHINE OPERATOR-C [Primary Care Provider] - Test Results: Test results from this visit will be discussed in further detail at your follow-up appointment, if applicable.
[2019-12-28] MEDS: Prenatal Vits Tablet 1 TABLET PO (14:28)
[2019-12-28 18:00] VITALS: RESP 18
== END 2019-12-28 17:50 | disposition home or self-care (01) | DRG 807 ==
PROVIDERS: Admitting Provider Advanced Practice Midwife; PCP Nurse Practitioner Adult Health; Visit Provider Advanced Practice Midwife
DX: O99.824 Streptococcus B carrier state complicating childbirth (principal); O69.81X0 Labor and delivery complicated by cord around neck, without compression, not applicable or unspecified; O99.214 Obesity complicating childbirth; E66.9 Obesity, unspecified; Z87.891 Personal history of nicotine dependence; Z3A.39 39 weeks gestation of pregnancy; Z37.0 Single live birth
CPT/HCPCS: 59050; 85025; 85027; 86850; 86900; 86901; 99218; J7120; G0378